=== PATIENT | male | born 1970 | race Caucasian/White ===

== ENCOUNTER 2017-06-10 13:54 | Emergency (ER) | payer OTHER ==
[~2017-06-10] VITALS: Ht 167.6 cm; Wt 72.6 kg
[~2017-06-10 13:54] MED LIST: BENZ2TAB27 PO; CLON0.1T42 PO; DEP250L GT; DOCU-67 PO; LEVE1000 PO; MULT5SOL7 PO; RISP2TAB PO; TRAZ-286 PO
[2017-06-10 13:59] VITALS: BP 129/77
--- NOTE | 2017-06-10 14:20 | NUR ---
PATIENT PRESENTS TO ED WITH CHEST PAIN AND HEADACHE TODAY. PT IS FROM [facility], CAREGIVERS PRESENT AT BEDSIDE. DENIES N/V/D; SKIN IS PINK/WARM/DRY; AAOX4 WITH EVEN AND STEADY GAIT; LUNGS CLEAR BL; HR EVEN AND REGULAR; PT DENIES ANY FEVER, CP, SOB, OR COUGH AT THIS TIME; VSS; PATIENT POSITIONED FOR COMFORT; HOB ELEVATED; BEDRAILS UP X2; BED DOWN. ER MD MADE AWARE OF PT STATUS.
--- NOTE | 2017-06-10 14:32 | NUR ---
PER PT, PT FELL AT [facility] AND HIT HEAD AND CHEST DURING THE FALL.
--- NOTE | 2017-06-10 15:00 | NUR ---
DR. WILLIS IN TO SEE PT.
[2017-06-10] MEDS ORDERED: NACL 0.9% 1,000 ML IV ONE (15:05)
[2017-06-10 15:55] LABS: BASOPHILS # (AUTO) 0.6 K/uL (0.00-0.22); EOSINOPHILS # (AUTO) 0.1 K/uL (0-0.4); MEAN CORPUSCULAR VOLUME 99 fL (80-94)
[2017-06-10 15:59] LABS: HEMATOCRIT 39.2 % (36-52); HEMOGLOBIN 13.5 g/dL (12.0-18.0); LYMPHOCYTES # (AUTO) 2.4 K/uL (2.0-11.5); MEAN CORPUSCULAR HEMOGLOBIN 34 pg (27-31); MEAN CORPUSCULAR HGB CONC 35 g/dL (33-37); MONOCYTES # (AUTO) 0.5 K/uL (0.8-1.0); NEUTROPHILS # (AUTO) 2.9 K/uL (1.8-7.7); PLATELET COUNT (AUTO) 98 K/uL (140-450); RED BLOOD CELL COUNT(AUTO) 3.98 MIL/uL (4.20-6.10); RED CELL DISTRIBUTION WIDTH 12.1 % (11.6-13.7); WHITE BLOOD COUNT (AUTO) 6.5 K/uL (4.8-10.8)
[2017-06-10 16:01] LABS: ALBUMIN 3.7 g/dL (3.4-5.0); ANION GAP 11.7 (8-16); CARBON DIOXIDE 28.1 mmol/L (21-32); CREATININE 0.9 mg/dL (0.7-1.3); POTASSIUM 3.8 mmol/L (3.5-5.1); TOTAL BILIRUBIN 0.5 mg/dL (0.0-1.0)
[2017-06-10 16:03] LABS: PROTHROMBIN TIME 13.3 secs (10.8-13.4)
--- NOTE | 2017-06-10 16:07 | NUR ---
Patient appears to be resting comfortably in bed. Vital Signs within normal limits. Respirations even and unlabored.
--- NOTE | 2017-06-10 17:12 | NUR ---
Patient discharged with v/s stable. Written and verbal after care instructions given and explained. Patient alert, oriented and verbalized understanding of instructions. Wheel Chair Assisted with by caregiver. All questions addressed prior to discharge. ID band removed. Patient advised to follow up with PMD. Rx of IBUPROFEN given. Patient educated on indication of medication including possible reaction and side effects. Opportunity to ask questions provided and answered.
[2017-06-10 17:13] VITALS: BP 98/79
== END 2017-06-10 17:12 | disposition home or self-care (01) ==
LOC: MED 13:54
DX: S20.219A Contusion of unspecified front wall of thorax, initial encounter (principal); X58.XXXA Exposure to other specified factors, initial encounter; Y93.89 Activity, other specified; Y92.89 Other specified places as the place of occurrence of the external cause; Y99.8 Other external cause status
CPT/HCPCS: 36415; 71010; 80053; 83880; 84484; 85025; 85610; 85730; 93005; 96360; 96361; 99285; J7030; Q0092

== ENCOUNTER 2020-06-20 10:39 | Emergency (ER) | payer OTHER ==
[~2020-06-20] VITALS: Ht 167.6 cm; Wt 68.0 kg
[~2020-06-20 10:39] MED LIST changes: -CLON0.1T42 PO; -DEP250L GT; +DIVA500T1 PO; -DOCU-67 PO; -LEVE1000 PO; +LEVE750T3 PO; +MULT-464 PO; -MULT5SOL7 PO; +QUET200T PO; +QUET300T1 PO; -RISP2TAB PO; +SENN-74 PO; -TRAZ-286 PO; +TRAZ-343 PO
[2020-06-20 10:50] VITALS: BP 126/58
--- NOTE | 2020-06-20 11:03 | NUR ---
49 YO MALE CO FELL OUT OF HIS WHEELCHAIR X 4 DAYS AGO---STAFF NOTED RIGHT HAND SWELLING-----NO OTHER INJURIES NOTED HX-SEVERE MENTAL DELAY, CONGENITAL HYPOTHYROIDISM
[2020-06-20] MEDS ORDERED: KETAMINE 500 MG/5 ML VIAL IVP ONE (11:55)
--- NOTE | 2020-06-20 12:50 | NUR ---
MODERATE SEDATION PERFORMED. RT, EMT AND ERMD AT BEDSIDE DURING PROCEDURE. TIME OUT DONE. POST REDUCTION XRAY COMPLETED. CAST APPLIED BY EMT. PLEASE SEE MODERATE SEDATION RECORD FOR FURTHER DETAILS.
[2020-06-20] MEDS ORDERED: KETOROLAC 15 MG/ML VIAL IVP ONE (13:20)
--- NOTE | 2020-06-20 13:29 | NUR ---
covering primary RN heidy for lunch, assumed pt care at this time.
[2020-06-20 14:11] VITALS: BP 115/65
--- NOTE | 2020-06-20 14:14 | NUR ---
Patient discharged with v/s stable. Written and verbal after care instructions given and explained. Patient alert, oriented and verbalized understanding of instructions. Wheel Chair Assisted with by caregiver. All questions addressed prior to discharge. ID band removed. Patient advised to follow up with PMD. Rx of tylenol given. Patient educated on indication of medication including possible reaction and side effects. Opportunity to ask questions provided and answered.
== END 2020-06-20 14:14 | disposition home or self-care (01) ==
LOC: MED 10:39
DX: S52.501A Unspecified fracture of the lower end of right radius, initial encounter for closed fracture (principal); S52.601A Unspecified fracture of lower end of right ulna, initial encounter for closed fracture; Z86.73 Personal history of transient ischemic attack (TIA), and cerebral infarction without residual deficits; Z79.899 Other long term (current) drug therapy; W05.0XXA Fall from non-moving wheelchair, initial encounter; Y93.89 Activity, other specified; Y92.89 Other specified places as the place of occurrence of the external cause; Y99.8 Other external cause status
CPT/HCPCS: 25605; 73090; 73100; 73130; 96374; 99285; J1885; Q0092

== ENCOUNTER 2022-10-23 09:15 | Inpatient (IN) | payer OTHER ==
[~2022-10-23] VITALS: Ht 167.6 cm; Wt 68.9 kg
[2022-10-23] VITALS (7 sets, daily range): BP systolic 78–154; BP diastolic 49–76
--- NOTE | 2022-10-23 09:27 | NUR ---
PATIENT WHEELCHAIR ASSISTED TO BED 2
--- NOTE | 2022-10-23 09:32 | NUR ---
PT RECEIVED, CARE ASSUMED. PT AWAKE BUT CONFUSSED. PT UNABLE TO ANSWER QUESTIONS. CONNECTED TO TELE MONITOR: ST 121. NOTED LOW BP 81/45. PLACED PT ON [place] POSITION, INSERTED 22G IV TO LEFT FA. STARTED 1 LITER NS0.9. AWAITING TO BE SEEN BY
[2022-10-23] MEDS ORDERED: NACL 0.9% 1,000 ML IV SCH (09:35)
[2022-10-23 10:19] LABS: BASOPHILS % (AUTO) 0.1 % (0.0-2.0); HEMATOCRIT 43.8 % (36-52); HEMOGLOBIN 14.5 g/dL (12.0-18.0); LYMPHOCYTES # (AUTO) 0.3 K/uL (2.0-11.5); LYMPHOCYTES % (AUTO) 2.5 % (20.5-51.1); MEAN CORPUSCULAR HEMOGLOBIN 34 pg (27-31); MEAN CORPUSCULAR HGB CONC 33 g/dL (33-37); MEAN CORPUSCULAR VOLUME 103.4 fL (80-94); MONOCYTES # (AUTO) 0.5 K/uL (0.8-1.0); MONOCYTES % (AUTO) 4.3 % (1.7-9.3); NEUTROPHILS # (AUTO) 11.5 K/uL (1.8-7.7); NEUTROPHILS % (AUTO) 93.1 % (42.2-75.2); PLATELET COUNT (AUTO) 142 K/uL (140-450); RED BLOOD CELL COUNT(AUTO) 4.24 MIL/uL (4.20-6.10); RED CELL DISTRIBUTION WIDTH 14.5 % (11.6-13.7); WHITE BLOOD COUNT (AUTO) 12.3 K/uL (4.8-10.8)
[2022-10-23 11:11] LABS: ALBUMIN 3.2 g/dL (3.4-5.0); ANION GAP 21.5 (8-16); CARBON DIOXIDE 21.9 mmol/L (21-32); CREATININE 1.3 mg/dL (0.6-1.3); POTASSIUM 3.4 mmol/L (3.5-5.1); TOTAL BILIRUBIN 0.8 mg/dL (0.0-1.0)
[2022-10-23 11:22] LABS: PROTHROMBIN TIME 10.5 secs (10.8-13.4)
[2022-10-23] MEDS ORDERED: NACL 0.9% 1,000 ML IV ONE (11:25)
[2022-10-23] MEDS ORDERED: cefTRIAXone 1,000 MG VIAL ONE (12:06)
[2022-10-23] MEDS ORDERED: MAG SULF 2000 MG/WATER PREMIX 50 ML IV PRN (14:15)
[2022-10-23] MEDS ORDERED: POTASSIUM CHLORIDE 10 MEQ TABER PO PRN (14:15)
[2022-10-23] MEDS ORDERED: VANCOMYCIN PER PHARMACY MC PRN (14:15)
[2022-10-23] MEDS ORDERED: MAGNESIUM OXIDE 400 MG TAB PO PRN (14:15)
[2022-10-23] MEDS: NACL 0.9% 1,000 ML IV SCH (14:44)
[2022-10-23 14:46] LABS: BARBITURATE, URINE NEGATIVE ng/ml (NEG <=200); BENZODIAZEPINE, URINE NEGATIVE ng/mL (NEG <=200); CANNABINOID, URINE NEGATIVE ng/mL (NEG <=50); COCAINE, URINE NEGATIVE ng/mL (NEG <=300); OPIATE, URINE NEGATIVE ng/mL (NEG <=2000); PHENCYCLIDINE SCREEN,URINE NEGATIVE ng/mL (NEG <=25)
[2022-10-23 14:50] LABS: APPEARANCE,URINE CLOUDY (CLEAR); BILIRUBIN,URINE 3+ (NEGATIVE); BLOOD, URINE NEGATIVE (NEGATIVE); COLOR,URINE RED (YELLOW); LEUKOCYTE ESTERASE ,URINE TRACE (NEGATIVE); NITRITE, URINE POSITIVE (NEGATIVE); PH,URINE 6.5 (5.0-9.0); UGLUCOSE TRACE (NEGATIVE)
[2022-10-23] MEDS ORDERED: VANCOMYCIN HCL 1.25 GM in DEXTROSE 5% 250 ML IV SCH (16:00)
[2022-10-23 16:18] LABS: RBC,URINE 0-5 /HPF (0-5); WBC,URINE 0-5 /HPF (0-5)
[2022-10-23] MEDS ORDERED: MAGNESIUM HYDROXIDE 2400 MG/30 ML UDC PO SCH (17:00)
[2022-10-23] MEDS ORDERED: VANCOMYCIN 1,000 MG VIAL ONE (17:13)
--- NOTE | 2022-10-23 17:30 | NUR ---
Patient will be admitted to care of ICU 2. Admited to ICU. Will go to room. Belongings list completed. Report to .
--- NOTE | 2022-10-23 17:45 | NUR ---
PATIENT ARRIVED FROM ER, TRANSFERRED SAFELY TO ICU BED. AAOX2, DELAYED SPEECH, INTELLECTUAL DISABILITY HISTORY, COOPERATIVE, FOLLOWS COMMANDS. IV SITE INTACT, PATENT, INFUSING IVF PER MD ORDERS. ROMERO CATH IN PLACE. ON ROOM AIR. COMPLAINS OF ABDOMINAL PAIN, MILD 2/10, WITHIN TOLERABLE AT THIS TIME. ORIENTED PATIENT TO ROOM AND CALL LIGHT. WILL CONTINUE TO MONITOR.
[2022-10-23] MEDS: MIDODRINE 5 MG TAB PO SCH (18:19)
[2022-10-23] MEDS: PIPERACILLIN/TAZOBACTAM 3.375 GM in DEXTROSE 5% 50 ML IV SCH (18:19)
--- NOTE | 2022-10-23 18:20 | NUR ---
SCHEDULED MEDICATIONS DUE GIVEN. WILL CONTINUE TO MONITOR.
--- NOTE | 2022-10-23 19:24 | NUR ---
Note steven in EDM - 10/23/22 at 1925 by [id number] Patient will be admitted to care of ICU 2. Admited to ICU. Will go to room. Belongings list completed. Report to .
--- NOTE | 2022-10-23 19:26 | NUR ---
GAVE REPORT TO LIGHT ADJUSTER NURSE FOR CONTINUITY OF CARE.
--- NOTE | 2022-10-23 19:30 | NUR ---
RECEIVED PATIENT ON BED, AWAKE, ALERT, ABLE TO FOLLOW COMMANDS THOUGH PATIENT HAS INTELLECTUAL DISABILITY. BREATHING EVEN AND UNLABORED; CARDIACSCOPE SHOWS ON SINUS TACHYHR 125/MIN NO ARRHYTHMIAS SEEN. IVF IN PROGRESS NORMAL SALINE AT 100 ML/HR VIA G 22 IV CANNULA ON LEFT ARM; PATENT AND INTACT. ABDOMEN IS SOFT, NON TENDER, ACTIVE BOWEL SOUNDS. WITH ROMERO CATH IN SITU TO GRAVITY DRAINAGE DRAINING TO TEA COLORED URINE OUTPUT .
[2022-10-23] MEDS: FAMOTIDINE 20 MG/2 ML VIAL IV SCH (20:40)
[2022-10-23] MEDS: traZODone 50 MG TAB PO SCH (20:41)
[2022-10-23] MEDS: levETIRAcetam 500 MG TAB PO SCH (20:43)
[2022-10-23] MEDS: DIVALPROEX 500 MG TABER PO SCH (20:44)
[2022-10-23] MEDS ORDERED: QUEtiapine FUMARATE 100 MG TAB PO SCH (21:00)
[2022-10-23] MEDS: BENZTROPINE 1 MG TAB PO SCH (21:08)
[2022-10-23] MEDS: DOCUSATE SODIUM 100 MG GELCAP PO SCH (21:09)
--- NOTE | 2022-10-23 21:30 | NUR ---
DUE ORAL MEDICATIONS GIVEN ORALLY WITH APPLE SAUCE.
--- NOTE | 2022-10-23 22:45 | NUR ---
PATIENT IS IN RESPIRATORY DISTRESS AND DESATURATING S02 DOWN TO 83%; PUT PATIENT OF HIGH FLOW 02 BY THE RT; S02 SOMEWHAT IMPROVE BUT PATIENT STILL LOOK LIKE IS DISTRESS AND COMPLAINED OF ABDOMINAL PAIN SO MEDICATED WITH HYDROCODONE TAB PO GIVEN.
[2022-10-23] MEDS: HYDROcodone/APAP 5/325 MG 1 TAB TAB PO PRN (22:51)
--- NOTE | 2022-10-23 23:30 | NUR ---
PATIENT STILL LOOK IN RESPIRATORY DISTRESS; REFER TO DR. ALANIZ WITH NEW ORDERS CARRIED OUT
[2022-10-23 23:56] LABS: ANION GAP 19.3 (8-16); CARBON DIOXIDE 15.7 mmol/L (21-32); CREATININE 1.2 mg/dL (0.6-1.3)
[2022-10-24] VITALS (26 sets, daily range): BP systolic 85–134; BP diastolic 44–80
[2022-10-24] MEDS ORDERED: ROCURONIUM 50 MG/5 ML VIAL IV ONE
[2022-10-24] MEDS ORDERED: ETOMIDATE 20 MG/10 ML VIAL IVP ONE
[2022-10-24] MEDS ORDERED: SODIUM BICARBONATE 8.4% PFS 50 MEQ/50 ML SYR IVP ONE ×2 (00:25→00:35)
[2022-10-24] MEDS: NACL 0.9% 1,000 ML IV SCH ×2 (00:30→20:58)
--- NOTE | 2022-10-24 00:40 | NUR ---
STAT CHEST X-RAY, BMP, AND ABG REQUESTED ORDERED BY DR. ALANIZ AND ALL RESULTS REPORTED TO HIM WITH ORDER TO GIVE SODIUM BICARB 3 AMPULES NOW; GIVEN IVP ORDERED.
[2022-10-24] MEDS ORDERED: PIPERACILLIN/TAZOBACTAM 3.375 GM VIAL IV ONE ×2 (00:42→05:19)
[2022-10-24] MEDS: MIDODRINE 5 MG TAB PO SCH ×4 (00:43→18:00)
[2022-10-24] MEDS: PIPERACILLIN/TAZOBACTAM 3.375 GM in DEXTROSE 5% 50 ML IV SCH ×4 (00:51→19:19)
[2022-10-24] MEDS: MORPHINE SULFATE 2 MG/ML SYR IVP PRN ×2 (00:55→07:46)
--- NOTE | 2022-10-24 04:04 | NUR ---
PLACED PT ON BiPAP DUE TO INCREASE WOB. WILL CONTINUE TO MONITOR PT.
--- NOTE | 2022-10-24 04:18 | NUR ---
REFERRED TO DR. ALANIZ, PATIENT'S BP IS GETTING LOW ; NOW ITS 87/54 TACHYAPNEIC RR 35-40/MIN TACHYCARDEIC HR 127-134; GOT NEW ORDERS AT 0550HR; ALL ORDERS CARRIED OUT.
[2022-10-24] MEDS ORDERED: FUROSEMIDE 20 MG/2 ML VIAL IVP ONE ×2 (05:30→05:31)
--- NOTE | 2022-10-24 05:30 | NUR ---
ABG RESULTS ON BiPAP WERE REPORTED TO DR. ALANIZ. READ BACK CONFIRMED. NO CHANGES OR ORDER GIVEN AT THIS TIME. WILL XONTINUE TO MONITOR PT.
[2022-10-24] MEDS ORDERED: HYDROCORTISONE NA SUCC 100 MG/2 ML VIAL IV ONE (05:55)
[2022-10-24] MEDS ORDERED: PHENYLEPHRINE 20 MG in NACL 0.9% 250 ML IV PRN (05:55)
[2022-10-24 05:59] LABS: BASOPHILS % (AUTO) 0.1 % (0.0-2.0); HEMATOCRIT 38.5 % (36-52); HEMOGLOBIN 12.8 g/dL (12.0-18.0); LYMPHOCYTES # (AUTO) 1.1 K/uL (2.0-11.5); LYMPHOCYTES % (AUTO) 9.7 % (20.5-51.1); MEAN CORPUSCULAR HEMOGLOBIN 34 pg (27-31); MEAN CORPUSCULAR HGB CONC 33 g/dL (33-37); MEAN CORPUSCULAR VOLUME 103.2 fL (80-94); MONOCYTES # (AUTO) 1.3 K/uL (0.8-1.0); NEUTROPHILS # (AUTO) 8.7 K/uL (1.8-7.7); NEUTROPHILS % (AUTO) 78.2 % (42.2-75.2); PLATELET COUNT (AUTO) 140 K/uL (140-450); RED BLOOD CELL COUNT(AUTO) 3.73 MIL/uL (4.20-6.10); RED CELL DISTRIBUTION WIDTH 14.4 % (11.6-13.7); WHITE BLOOD COUNT (AUTO) 11.2 K/uL (4.8-10.8)
[2022-10-24] MEDS ORDERED: HYDROCORTISONE NA SUCC 100 MG/2 ML VIAL ONE (06:05)
[2022-10-24] MEDS ORDERED: PHENYLEPHRINE 10 MG/ML VIAL ONE ×2 (06:06→23:59)
[2022-10-24 06:31] LABS: ALBUMIN 2.8 g/dL (3.4-5.0); ANION GAP 21.6 (8-16); CARBON DIOXIDE 21.2 mmol/L (21-32); CREATININE 1.5 mg/dL (0.6-1.3); MAGNESIUM 2.9 mg/dL (1.8-2.4); POTASSIUM 3.8 mmol/L (3.5-5.1); TOTAL BILIRUBIN 0.7 mg/dL (0.0-1.0)
[2022-10-24] MEDS: NACL 0.9% IV PRN (06:40)
[2022-10-24] MEDS: PHENYLEPHRINE IV PRN (06:40)
--- NOTE | 2022-10-24 06:40 | NUR ---
NEOSYNEPHRINE DRIP STARTED AT 50 MCG/MIN VIA PERIPHERAL LINE TO NEWLY INSERTED G20 IV CANNULA ON RIGHT ARM. V/S MONITORED CLOSELY.
--- NOTE | 2022-10-24 07:30 | NUR ---
Received report on pt. Pt noted with tachypnea on bipap FiO2 100%. IV sites with IVF infusing, no infiltration noted. Pt also on neosynephrine drip. Donovan in place with minimal output. Pt able to answer yes/no questions, but unable to tell if is understood.
--- NOTE | 2022-10-24 08:01 | NUR ---
Call made to contact on facesheet, Jason Pabon. Jason states he is the caregiver for patient but is not the major decision maker. Jason provided number for patient's sister Elinor Malagon [phone] and [facility] Picking Table Worker [phone]. Jason also states he will fax [employer].
--- NOTE | 2022-10-24 08:17 | NUR ---
Call made to Elinor Malagon with [employer] interpreter ID [id number]. Elinor made aware of pt's condition, obtained consent for PICC line and informed about possibility of putting patient on ventilator. PICC line consent signed by Dr. Julian. Addendum: 10/24/22 at 1028 by Agency Caitlin HERNANDEZ RN Witnessed by Nadia HERNANDEZ.
[2022-10-24] MEDS: SENNA 8.6 MG TAB PO SCH (09:00)
[2022-10-24] MEDS: levETIRAcetam 500 MG TAB PO SCH ×2 (09:00→21:00)
[2022-10-24] MEDS: DIVALPROEX 500 MG TABER PO SCH ×2 (09:00→21:00)
[2022-10-24] MEDS: DOCUSATE SODIUM 100 MG GELCAP PO SCH ×2 (09:00→21:00)
[2022-10-24] MEDS ORDERED: QUEtiapine FUMARATE 100 MG TAB PO SCH (09:00)
[2022-10-24] MEDS: BENZTROPINE 1 MG TAB PO SCH ×2 (09:00→21:00)
[2022-10-24] MEDS: POLYETHYLENE GLYCOL 17 GM/PKT PO SCH (09:00)
--- NOTE | 2022-10-24 09:00 | NUR ---
Pt unable to tolerate being off BiPAP to eat or take medication. Dr. Julian aware.
[2022-10-24] MEDS: ENOXAPARIN 40 MG/0.4 ML SYR SUBQ SCH (09:38)
[2022-10-24] MEDS: FAMOTIDINE 20 MG/2 ML VIAL IV SCH (10:00)
--- NOTE | 2022-10-24 10:42 | NUR ---
PICC line nurse at bedside for procedure. Time out done.
--- NOTE | 2022-10-24 10:46 | NUR ---
PATIENT HAS BEEN SCREENED AND CATEGORIZED HIGH NUTRITION RISK. PATIENT WILL BE SEEN WITHIN 1-2 DAYS OF ADMISSION. REVIEWED BY MEGHAN CHAVIS RD
--- NOTE | 2022-10-24 11:12 | NUR ---
ON OR ABOUT THIS TIME Zee WANG RCP AND STEVEN BERNAL CALLED TO BEDSIDE FOR INTUBATION
[2022-10-24] MEDS ORDERED: MIDAZOLAM MDV 50 MG in NACL 0.9% 40 ML IV PRN (11:15)
--- NOTE | 2022-10-24 11:15 | NUR ---
Dr. Whitney rounding on pt, states to intubate pt. New orders made.
--- NOTE | 2022-10-24 11:20 | NUR ---
INTUBATION PROCEDURE Zee WANG RCP AND Sebastien CONWAY RCP ATTENDING; USING A GLIDESCOPE VOCAL CORDS VISUALIZED PATIENT SUCCESSFULLY INTUBATED BY DR. XAVIER CHAVIS WITH AN ENDOTRACHEAL TUBE (ETT) #7.5 SECURED AT 25cm TEETH/GUM LINE WITH AN ANCHOR FAST CUFF PRESSURE MOV ETT PLACEMENT CONFIRMED VIA ETCO2-YELLOW GOOD CHEST RISE AUSCULTATION BILATERAL LUNG APEX TO BASES GOOD AERATION CXR TO FOLLOW
--- NOTE | 2022-10-24 11:25 | NUR ---
Intubation done by Dr. Whitney Addendum: 10/24/22 at 1203 by Agency Caitlin HERNANDEZ RN RT present at bedside. Pt received Etomidate 20 mg and rocuronium 30 mg. Attempted NGT insertion.
--- NOTE | 2022-10-24 11:32 | NUR ---
PLACED ON A PB 840 VENTILATOR WITH COMPRESSOR PLUGGED INTO RED OUTLET TOLERATING WELL WITHOUT ADVERSE REACTIONS NOTED
--- NOTE | 2022-10-24 12:03 | NUR ---
NGT/OGT insertion unsuccessful x 3, pt resting post attempt
--- NOTE | 2022-10-24 14:00 | NUR ---
Called Elinor Manas via [employer] Lead #[phone] and obtained consent for CT angiogram ordered by , but Elinor states she does not know complete history of pt and states to call care home for more information regarding the questionnaire. Attempted 3 calls to pt's caregiver Jason Pabon at [facility], no answer and no voicemail available to leave message. Will attempt again later.
[2022-10-24] MEDS: fentaNYL citrate 1 MG in NACL 0.9% 80 ML IV PRN (15:22)
[2022-10-24] MEDS ORDERED: VANCOMYCIN HCL 1.25 GM in DEXTROSE 5% 250 ML IV SCH (16:00)
--- NOTE | 2022-10-24 16:45 | NUR ---
Call placed again to [facility] to obtain information for contrast questionnaire. Consent completed and in chart.
--- NOTE | 2022-10-24 16:54 | NUR ---
10/24/22 RD INITIAL ASSESSMENT COMPLETED PLEASE REFER TO NUTRITION ASSESSMENT UNDER CARE ACTIVITY FOR ESTIMATED NUTRITIONAL NEEDS. 1. RECOMMEND CONSIDER NUTRITION SUPPORT IF/WHEN MEDICALLY APPROPRIATE TOLERATED 2. RECOMMEND VITAL AF 1.2 AT GOAL RATE 60 ML/HR, FWF 150 ML Q6H TOLERATED - PROVIDES 1440 ML TOTAL VOLUME, 1728 KCAL, 108 GM PROTEIN AND 1760 ML FREE WATER DAILY MEETING 100% ESTIMATED KCAL AND PROTEIN NEEDS; ADEQUATE - START TF AT 1O ML/HR INCREASE BY 1O ML Q4H UNTIL GOAL IS REACHED 3. MONITOR NPO STATUS, GI SYMPTOMS, NUTRITION RELATED LAB VALUES 4. CONSULT RD PRN 5. RD TO FOLLOW-UP 2-3 DAYS, HIGH RISK REVIEWED BY MEGHAN CHAVIS RD
--- NOTE | 2022-10-24 16:54 | NUR ---
DC PLANNING PER NOTES, PT IS ALERT AND ORIENTED X2 WITH INTELLECTUAL DISABILITY SW OUTREACHED TO PTS EMERGENCY CONTACT, [facility], WHO REPORTS PT IS RESIDENT OF [facility] FOR 10+YRS. [facility] REPORTS PT HAS ACTIVE FAMILY INVOLVEMENT, SISTER, FABIENNE PERALES, WHO IS PTS [facility]. PT IS ALSO REPORTED TO BE [facility] CONNECTED, [facility] SW; [place], . PT IS REPORTED TO BE WHEELCHAIR BOUND AND REQUIRES ASSISTANCE WITH ADL'S. PT IS REPORTED TO BE MINIMALLY VERBAL AND CAN ANSWER SIMPLE QUESTIONS. PT IS REPORTED TO BE INDONESIAN SPEAKING ONLY. PT IS REPORTED TO SHOW VERY MINIMAL VERBAL AND PHYSICAL AGGRESSION HOWEVER. PT IS REPORTED TO BE COMPLIANT WITH CARE AND TAKES MEDICATION THAT IS ADMINISTERED BY HOME. [facility] REPORTS DC PLAN IS FOR PT TO RETURN TO RESIDENTIAL [facility] WHEN MEDICALLY STABLE. [facility] REPORTS [facility] PROVIDES TRANSPORTATION . Addendum: 10/24/22 at 1656 by Bhavna WILHELM Amended: Links added.
--- NOTE | 2022-10-24 19:20 | NUR ---
Endorsed plan of care to Galileo HERNANDEZ. Made aware of CT angio with contrast, consent signed and placed in chart
--- NOTE | 2022-10-24 19:32 | NUR ---
RECEIVED REPORT FROM AM SHIFT. PATIENT WAS SEEN AND ASSESSED. PATIENT IS INTUBATED WITH ETT SIZE 7.5 AND SECURED WITH A BITING BLOCK ANCHOR-FAST 25cm @ TEETH. PATIENT IS ON VENTILATOR SUPPORT. VENTILATOR PLUGGED IN RED OUTLET. VENTILATOR ALARMS SET APPROPRIATELY AND AUDIBLE TO ENVIRONMENT. AMBU BAG AT BEDSIDE. HEAD OF BED GREATER THAN 30 DEGREES. NOTICED ADEQUATE BILATERAL CHEST RISE AND FALL. PATIENT IS IN NO RESPIRATORY DISTRESS AT THIS TIME.VENT SETTINGS: AC/VC RR 18, Vt 450, PEEP 5, FiO2 100% WITH SPO2 OF 97%. BILATERAL BREATH SOUNDS ON AUSCULTATION; UPPER LOBES: CLEAR, LOWER LOBES: COARSE. SUCTION SMALL AMOUNT OF WHITE/YELLOW THICK SECRETIONS FROM ETT.
--- NOTE | 2022-10-24 20:23 | NUR ---
1999- PT FOUND INTUBATED AND RESPONSIVE TO VOICE WITH EYE OPEN BUT DOESNT FOLLOW COMMANDS. FENATNYL, VERSED, NORMAL SALINE AND NEOSYNEPHRINE RUNNING THROUGH RIGHT UPPER ARM PICC. ALL IV SITES FLUSH WITHOUT COMPLICATION. NGT INSERTED ON RIGHT NARE AND TO BE CONFIRMED WITH CT ABDOMEN WHICH WAS SCHEDUYLED TO BE AT 2130. NO COMPLICATION NOTED IN THE INSERTION OF THE NGT
[2022-10-24] MEDS: traZODone 50 MG TAB PO SCH (21:00)
--- NOTE | 2022-10-24 22:23 | NUR ---
AT APPROXIMATELY 2140 PT WAS DISCONNECTED AND OXYGENATION AND VENTILATION WAS PROVIDED VIA BVM TO CT SCAN. PT TOLERATED WELL DURING PROCEDURE AND TRANSPORT. SPO2 98% TO 100%. PT WAS BROUGHT BACK AT 2220 AND CONNECTED BACK TO VENT. WILL CONTINUE TO MONITOR PT.
--- NOTE | 2022-10-24 22:24 | NUR ---
PT LEFT FOR CT ANGIO AT 2139 AND RETURNED AT 2219. NO COMPLICATIONS NOTED
--- NOTE | 2022-10-24 23:59 | NUR ---
SPO2 98%. TITRATED FiO2 FROM 100% TO 95%. SPO2 96%. PT TOLERATING WELL AT THIS TIME. WILL CONTINUE TO MONITOR PT
[2022-10-25] VITALS (31 sets, daily range): BP systolic 88–130; BP diastolic 43–89
[2022-10-25] MEDS: PIPERACILLIN/TAZOBACTAM 3.375 GM in DEXTROSE 5% 50 ML IV SCH ×5 (00:03→23:42)
--- NOTE | 2022-10-25 03:00 | NUR ---
SPO2 98%. TITRATED FiO2 FROM 95% TO 85%. SPO2 97%. PT TOLERATING WELL AT THIS TIME. RN NOTIFIED. WILL CONTINUE TO MONITOR PT
[2022-10-25 05:51] LABS: BASOPHILS % (AUTO) 0.2 % (0.0-2.0); EOSINOPHILS % (AUTO) 0.2 % (0.0-4.0); HEMATOCRIT 33.9 % (36-52); HEMOGLOBIN 11.5 g/dL (12.0-18.0); LYMPHOCYTES % (AUTO) 8.3 % (20.5-51.1); MEAN CORPUSCULAR HEMOGLOBIN 35 pg (27-31); MEAN CORPUSCULAR HGB CONC 34 g/dL (33-37); MEAN CORPUSCULAR VOLUME 101.6 fL (80-94); MONOCYTES % (AUTO) 8.5 % (1.7-9.3); NEUTROPHILS # (AUTO) 9.7 K/uL (1.8-7.7); NEUTROPHILS % (AUTO) 82.8 % (42.2-75.2); PLATELET COUNT (AUTO) 76 K/uL (140-450); RED BLOOD CELL COUNT(AUTO) 3.33 MIL/uL (4.20-6.10); RED CELL DISTRIBUTION WIDTH 14.8 % (11.6-13.7); WHITE BLOOD COUNT (AUTO) 11.8 K/uL (4.8-10.8)
[2022-10-25] MEDS: MIDODRINE 5 MG TAB PO SCH ×5 (06:00→23:42)
[2022-10-25 06:52] LABS: ALBUMIN 2.3 g/dL (3.4-5.0); ANION GAP 15.7 (8-16); CARBON DIOXIDE 23.8 mmol/L (21-32); CREATININE 1.3 mg/dL (0.6-1.3); MAGNESIUM 3.1 mg/dL (1.8-2.4); POTASSIUM 4.5 mmol/L (3.5-5.1); TOTAL BILIRUBIN 0.9 mg/dL (0.0-1.0)
--- NOTE | 2022-10-25 06:56 | NUR ---
PT REMAINS STABLE, INTUBATED AND SEDATED. PRESSORS ARE STILL ON AT NEOSYNEPHRINE AT 50 MCG/MIN, HAD TO MIX NEOSYNEPHRINE LAST NIGHT DUE TO UNSTOCKED MEDS IN CASSETTE. MIXED 80MG NEOSYNEPHRINE IN 1000 ML OF NS DUE TO INSUFFICIENT AMOUNTS OF 500 ML BAGS OF NS IN ENTIRE HOSPITAL. CHARGE NURSE MAKAYLA MADE AWARE. UNABLE TO FULLY CONFIRM PLACEMENT OF NGT WITH CHEST X RAY AND CT IMPRESSIONS DUE TO INABILITY TO ADVANCE DESPITE RECOMMENDATIONS AND THEREFORE UNABLE TO GIVE ANY OF THE PO MEDS. WILL ENDORSE TO DAY NURSE TO FOLLOW UP WITH MD FOR FURTHER RECOMMENDATIONS ON GASTRIC TUBE PLACEMENT
--- NOTE | 2022-10-25 07:15 | NUR ---
RECEIVED PT ON ACVC 400,18,+5,85%. VENT WHEELS ARE LOCKED, PLUGGED INTO RED OUTLET, AMBUBAG AT BEDSIDE, ALARMS ARE SET AND AUDIBLE. SATURATION WAS 97%. BREATH SOUNDS WERE CLEAR, BUT DIMINISHED IN THE LOWER LOBES. WILL CONTINUE TO MONITOR.
--- NOTE | 2022-10-25 08:00 | NUR ---
RECEIVED PTSEDATED, ON VERSED AT 5 MCG/HR AND FENTANYL AT 1.5 MCG/KG/HR; ORALLY INTUBATED, AFEBRILE. ASSESSMENT DONE. IV FLUIDS INFUSING WELL VIA LEFT PICC IN LEFT UPPER ARM, GOOD BACKFLOW, GEN NONPITTING EDEMA NOTED. REPOSITIONED TO SIDE, SUPPORTED WITH PILLOWS, CONT TO MONITOR, ST /SR.
[2022-10-25] MEDS: levETIRAcetam 500 MG TAB PO SCH ×2 (09:00→20:57)
[2022-10-25] MEDS: POLYETHYLENE GLYCOL 17 GM/PKT PO SCH (09:00)
[2022-10-25] MEDS: BENZTROPINE 1 MG TAB PO SCH ×2 (09:00→20:59)
[2022-10-25] MEDS: VANCOMYCIN HCL 1.25 GM in DEXTROSE 5% 250 ML IV SCH (09:00)
[2022-10-25] MEDS: DOCUSATE SODIUM 100 MG GELCAP PO SCH (09:00)
[2022-10-25] MEDS: SENNA 8.6 MG TAB PO SCH (09:00)
[2022-10-25] MEDS: ENOXAPARIN 40 MG/0.4 ML SYR SUBQ SCH (09:00)
[2022-10-25] MEDS: DIVALPROEX 500 MG TABER PO SCH (09:00)
--- NOTE | 2022-10-25 09:00 | NUR ---
LOVENOX NOT GIVEN, PLATELET 76,000; NO S/S ACTIVE BLEEDING NOTED AT THIS TIME.
--- NOTE | 2022-10-25 09:35 | NUR ---
BP 83/52, HR 140'S NEOSYNEPHRINE DRIP TITRATED UP, CONT TO MONITOR.
[2022-10-25] MEDS: fentaNYL citrate 1 MG in NACL 0.9% 80 ML IV PRN (10:38)
--- NOTE | 2022-10-25 10:45 | NUR ---
DR. Claudine CHAVIS HERE UPDATED ON PT CONDITION, INFORMED NGT NEEDS PLACEMENT VERIFICATION, PT AT THIS TIME IS TOTALLY NPO. VERIFIED PLACEMENT, OK TO USE PER MD, NEW ORDER NOTED AND CARRIED OUT.
[2022-10-25] MEDS ORDERED: AMIODARONE 150 MG in DEXTROSE 5% 100 ML IV SCH (11:30)
--- NOTE | 2022-10-25 11:30 | NUR ---
FIO2 TITRATED DOWN BY RT TO 55%. CONT TO MONITOR.
[2022-10-25] MEDS: AMIODARONE 450 MG in DEXTROSE 5% 250 ML IV SCH ×2 (12:01→22:09)
--- NOTE | 2022-10-25 12:03 | NUR ---
PT. WITH LOW CASIE SCALE AT HIGH RISK, CONTINUE TO FOLLOW PRESSURE INJURY PREVENTION INTERVENTIONS. -POSITIONING: TURN AND REPOSITION PATIENT Q 2H OR SOONER USE PILLOWS TO KEEP BONY PROMINENCES FROM DIRECT CONTACT WITH SURFACES USE REPOSITIONING WEDGES TO PROVIDE 30-DEGREE ANGLE FOR SIDE LYING POSITIONS OFFLOADING OR FOAM DRESSING TO ALL TUBING TO PREVENT MEDICAL DEVICES RELATED PRESSURE INJURY -RE-EVALUATING AND MANAGING INCONTINENCE MONITOR SKIN CONDITION DURING POSITION CHANGE DO NOT MASSAGE REDNESS, BONY PROMINENCES FREQUENT MARGARET-CARE AND PROVIDE BARRIER CREAMS PRN IF SOILING MOISTURE CONTROL BY OFFER BED GARCIA/URINAL /ABSORBENT PAD TO WICK AND HOLD MOISTURE KEEP SKIN DRY AND PROTECT FROM FRICTION -MANAGE FRICTION/SHEAR/MOBILITY KEEP HOB AT THE LOWEST LEVEL OF ELEVATION NO MORE THAN 30 DEGREE UNLESS OTHERWISE CONTRAINDICATED USE LIFT SHEET OR TRANSFER DEVICE TO MOVE PATIENT AND PREVENT LATERAL SHEER. PROTECT HEELS, ELBOWS BONY PROMINENCES WITH SKIN BERRIES OR FOAM DRESSING IF EXPOSED TO FRICTION OFFLOAD BILATERAL HEELS BY PLACING PILLOWS UNDER CALVES AT ALL TIMES, UNLESS OTHERWISE CONTRAINDICATED -PRESSURE REDISTRIBUTION SURFACE THERAPY KIM ISOFLEX MATTRESS -NUTRITION: PLEASE FOLLOW RD RECOMMENDATIONS AND OFFER NUTRITION SUPPLEMENTS IF ORDERED. PLEASE CONTACT WOUND CARE NURSE FOR ANY QUESTION AND CHANGE OF WOUND CONDITION.
--- NOTE | 2022-10-25 12:15 | NUR ---
AMIODARONE DRIP GOING PER PROTOCOL. CONT TO MONITOR.
--- NOTE | 2022-10-25 13:00 | NUR ---
VERSED AND FENTANYL DRIPS STOPPED AT THIS TIME FOR BP 73/52, HR 93. CONT TO MONITOR.
[2022-10-25] MEDS: MAGNESIUM HYDROXIDE 2400 MG/30 ML UDC NG PRN (13:41)
--- NOTE | 2022-10-25 14:00 | NUR ---
ABG DONE, FIO2 TITRATED DOWN TO 40% BY RT. BP AT THIS TIME 94/54, HR 99, MYLES DRIP REMAINS AT MAX DOSE. CONT TO MONITOR.
[2022-10-25] MEDS: NACL 0.9% 1,000 ML IV SCH (15:54)
--- NOTE | 2022-10-25 16:00 | NUR ---
O2 SAT 97-98%, FIO2 TITRATED DOWN BY RT TO 35%. CONT TO MONITOR.
--- NOTE | 2022-10-25 19:15 | NUR ---
PT APPEARS TO BE RESTING COMFORTABLY, VERSED AND FENTANYL DRIPS REMAINS OFF. MYLES AND AMIO DRIPS INFUSING WELL. REPORT GIVEN TO INCOMING RN MUSTAPHA. GEN CONDITION CRITICAL.
--- NOTE | 2022-10-25 19:27 | NUR ---
RECEIVED PT. FROM DAY SHIFT MARY WELLS. PT. ON ETT PRVC RATE 18, TV 400, FIO2 35%, PEEP 5 AND O2 SAT 95%. PT. WITH LEFT UPPER ARM PICC LINE, INFUSING NEOSYNEPHRINE 150 MCG/MIN, NS 50 ML/HR AND AMIODARONE DRIP 0.5 MG/MIN. SINUS TACHYCARDIA 104-107 ON THE MONITOR PT. WITH RIGHT NGT CAPPED AND FLUSHED. PER DAY SHIFT, DR. PARK VERIFIED PLACEMENT OF NGT TO CT AND CONFIRMED IN PLACED AND ORDERED TO NO FEEDING UNTIL WITH BM. NO BM REPORTED TODAY. PT. SKIN INTACT. ROMERO CATHETER TO GRAVITY, DRAINING WELL,DARK LAVERNE URINE. PT. REPOSITIONED. BEDLOCK AND PROVIDED SAFE, QUIET ENVIRONMENT. WILL CONT. TO MONITOR.
--- NOTE | 2022-10-25 20:00 | NUR ---
PT. AXILLARY TEMP. 92.2 AND PT. SKIN DRY AND WARM. PLACED A VIGNESH HUGGER AND WILL CONT. TO MONITOR.
[2022-10-25] MEDS: VALPROIC ACID 250 MG/5 ML UDC NG SCH (20:56)
--- NOTE | 2022-10-25 21:00 | NUR ---
PT. CONT. ON VIGNESH MYERS AND MILAD AT THIS TIME 94.4. WILL CONT. TO MONITOR.
[2022-10-25] MEDS ORDERED: AMIODARONE 450 MG/9 ML VIAL IV ONE ×2 (21:49→21:51)
[2022-10-26] VITALS (31 sets, daily range): BP systolic 117–154; BP diastolic 65–95
[2022-10-26] MEDS: NACL 0.9% IV PRN ×2 (01:50→06:48)
[2022-10-26] MEDS: PHENYLEPHRINE IV PRN ×2 (01:50→06:48)
[2022-10-26] MEDS: VANCOMYCIN HCL 1.25 GM in DEXTROSE 5% 250 ML IV SCH ×2 (02:33→20:35)
[2022-10-26 06:06] LABS: HEMATOCRIT 33.5 % (36-52); HEMOGLOBIN 11.3 g/dL (12.0-18.0); MEAN CORPUSCULAR HEMOGLOBIN 34 pg (27-31); MEAN CORPUSCULAR HGB CONC 34 g/dL (33-37); MEAN CORPUSCULAR VOLUME 101.9 fL (80-94); PLATELET COUNT (AUTO) 60 K/uL (140-450); RED BLOOD CELL COUNT(AUTO) 3.29 MIL/uL (4.20-6.10); RED CELL DISTRIBUTION WIDTH 15.3 % (11.6-13.7); WHITE BLOOD COUNT (AUTO) 15.7 K/uL (4.8-10.8)
[2022-10-26] MEDS: MIDODRINE 5 MG TAB PO SCH ×3 (06:30→19:00)
[2022-10-26] MEDS: PIPERACILLIN/TAZOBACTAM 3.375 GM in DEXTROSE 5% 50 ML IV SCH ×4 (06:30→23:29)
[2022-10-26 06:42] LABS: ANION GAP 10.2 (8-16); CREATININE 0.9 mg/dL (0.6-1.3); MAGNESIUM 2.9 mg/dL (1.8-2.4); POTASSIUM 4.2 mmol/L (3.5-5.1); TOTAL BILIRUBIN 0.8 mg/dL (0.0-1.0)
[2022-10-26 06:57] LABS: ALBUMIN 2.1 g/dL (3.4-5.0)
--- NOTE | 2022-10-26 07:00 | NUR ---
RECEIVED PT ON ACVC 18,400,+5,35%. VENT WHEELS ARE LOCKED, PLUGGED INTO RED OUTLET, AMBUBAG AT BEDSIDE, ALARMS ARE SET AND AUDIBLE. SATURATION WAS 95%. SLIGHT COARSE BREATH SOUNDS, IMPROVED AFTER SUCTION. GOOD CHEST RISE, WILL CONTINUE TO MONITOR.
[2022-10-26 07:13] LABS: BASOPHILS % (MANUAL) 0 % (0-2); EOSINOPHILS % (MANUAL) 0 % (0-4); LYMPHOCYTES % (MANUAL) 9 % (20-46); MONOCYTES % (MANUAL) 8 % (5-12)
--- NOTE | 2022-10-26 07:21 | NUR ---
ENDORSED PT. TO DAY SHIFT RUSSELL,RN FOR CONTINUITY OF CARE. ALL QUESTIONS ANSWERED.
--- NOTE | 2022-10-26 08:00 | NUR ---
RECEIVED PT ON BED STUPOROUS, ON NEOSYNEPHRINE DRIP AT 50 MCG/MIN; NO SEDATION AT THIS TI,E.ETT TO VENT, TOLERATING CURRENT VENT SETING OF AV 18, TIDAL VOL 400, FIO2 85%, PEEP 5. NGT IN PLACE FOR MEDS ONLY. ASSESSMENT DONE. REPOSITIONED TO SIDE, SUPPORTED WITH PILLOWS. F/C DRAINING VERY SCANT DARK CLOUDY LAVERNE URINE. KEPT CLEAN AND DRY. AFEBRILE. ST PER MONITOR.
--- NOTE | 2022-10-26 08:00 | NUR ---
NEOSYNEPHRINE DRIP TITRATED DOWN TO 40 MCG/MIN. CONT TO MONITOR.
[2022-10-26] MEDS: BENZTROPINE 1 MG TAB PO SCH ×2 (09:00→20:37)
[2022-10-26] MEDS: ENOXAPARIN 40 MG/0.4 ML SYR SUBQ SCH (09:00)
[2022-10-26] MEDS: VALPROIC ACID 250 MG/5 ML UDC NG SCH ×2 (09:24→20:35)
[2022-10-26] MEDS: MAGNESIUM HYDROXIDE 2400 MG/30 ML UDC NG PRN (09:27)
[2022-10-26] MEDS: levETIRAcetam 500 MG TAB PO SCH ×2 (09:28→20:36)
[2022-10-26] MEDS: POLYETHYLENE GLYCOL 17 GM/PKT PO SCH (09:29)
--- NOTE | 2022-10-26 09:30 | NUR ---
FIOS TITRATED DOWN TO 40%. BY RT. CONT TO MONITOR. O2 SAT 95-96%.
--- NOTE | 2022-10-26 10:45 | NUR ---
DR. REED HERE, UPDATED ON PT CONDITION. NEW ORDER NOTED AND CARRIED OUT. NEOSYNEPHRINE DRIP NOW AT 30 MCG/MIN. CONT TO MONITOR.
--- NOTE | 2022-10-26 11:00 | NUR ---
MYLES DRIP OFF. CONT TO MONITOR.
[2022-10-26] MEDS: NACL 0.9% 1,000 ML IV SCH (11:54)
[2022-10-26] MEDS ORDERED: bisacodyL 10 MG SUPP RC PRN (13:30)
--- NOTE | 2022-10-26 18:00 | NUR ---
DR. STALLINGS HERE, UPDATED ON PT CONDITION.
--- NOTE | 2022-10-26 19:16 | NUR ---
ENDORSED TO INCOMING PM NURSE GEN MUSTAPHA CONDITION CRITICAL.
--- NOTE | 2022-10-26 19:45 | NUR ---
RECEIVED PT. FROM DAY SHIFT MARY WELLS. PT. OBTUNDED. EYES NO REACTION TO LIGHT AND ACCOMODATION. CONT. ON ETT TO VENT: A/C RATE 18, TV 400, FIO2 40%, PEEP 5 AND O2 SAT 96%. BILATERAL LUNG SOUNDS DIMINISHED. CARDIAC RHYTHM 103 SINUS TACHYCARDIA. IV TO LEFT UPPER ARM PICC LINE PATENT AND INTACT. INFUSING NS AT 50ML/HR. ABDOMINAL SOUNDS HYPOACTIVE. PT. WITH RIGHT NGT RUNNING VITAL AF 1.2 AT 20ML/HR AND TOLERATING WELL, WITH MINIMAL GASTRIC RESIDUAL. PT. SKIN IS INTACT. ROMERO CATHETER TO GRAVITY, PATENT, INTACT AND URINE COLOR DARK LAVERNE. PROVIDED SAFE AND QUIET ENVIRONMENT. REPOSITIONED PT. AND PLACED COMFORTABLY. NO RESPIRATORY DISTRESS NOTED. NO S/S OF PAIN AT THIS TIME. WILL CONTINUE TO MONITOR.
[2022-10-26] MEDS: AMIODARONE 200 MG TAB NG SCH (20:41)
[2022-10-27] VITALS (25 sets, daily range): BP systolic 134–156; BP diastolic 73–96
[2022-10-27] MEDS: MIDODRINE 5 MG TAB PO SCH ×4 (06:00→17:30)
[2022-10-27] MEDS: PIPERACILLIN/TAZOBACTAM 3.375 GM in DEXTROSE 5% 50 ML IV SCH ×3 (06:12→17:16)
[2022-10-27 06:31] LABS: ALBUMIN 1.7 g/dL (3.4-5.0); ANION GAP 10.2 (8-16); CARBON DIOXIDE 28.3 mmol/L (21-32); CREATININE 0.8 mg/dL (0.6-1.3); MAGNESIUM 2.7 mg/dL (1.8-2.4); POTASSIUM 3.5 mmol/L (3.5-5.1); TOTAL BILIRUBIN 0.8 mg/dL (0.0-1.0)
[2022-10-27 06:56] LABS: BASOPHILS % (AUTO) 0.1 % (0.0-2.0); EOSINOPHILS % (AUTO) 0.3 % (0.0-4.0); HEMATOCRIT 31.9 % (36-52); HEMOGLOBIN 10.9 g/dL (12.0-18.0); LYMPHOCYTES # (AUTO) 1.3 K/uL (2.0-11.5); LYMPHOCYTES % (AUTO) 10.7 % (20.5-51.1); MEAN CORPUSCULAR HEMOGLOBIN 35 pg (27-31); MEAN CORPUSCULAR HGB CONC 34 g/dL (33-37); MEAN CORPUSCULAR VOLUME 101.3 fL (80-94); MONOCYTES # (AUTO) 0.8 K/uL (0.8-1.0); MONOCYTES % (AUTO) 6.7 % (1.7-9.3); NEUTROPHILS # (AUTO) 9.6 K/uL (1.8-7.7); NEUTROPHILS % (AUTO) 82.2 % (42.2-75.2); RED BLOOD CELL COUNT(AUTO) 3.15 MIL/uL (4.20-6.10); RED CELL DISTRIBUTION WIDTH 14.8 % (11.6-13.7); WHITE BLOOD COUNT (AUTO) 11.7 K/uL (4.8-10.8)
[2022-10-27 07:01] LABS: PLATELET COUNT (AUTO) 50 K/uL (140-450)
--- NOTE | 2022-10-27 07:18 | NUR ---
ENDORSED PT. TO DAY SHIFT MARY MUIR FOR CONTINUITY OF CARE. ALL QUESTIONS ANSWERED.
--- NOTE | 2022-10-27 07:30 | NUR ---
Received pt responsive to pain stimuli. ETT to vent settings, AC VC TV 400 PEEP 5 FiO@@45%. Sinus rhythm on monitor. NG-tube to right nare infusing Vital 1.2 @50ml/hr with FWF 50ml Q8hr. Donovan catheter draining to bedside drainage. PICC line on left upper arm infusing NS@50ml/hr. Peripheral IV 20 gauge intact and saline locked on right upper arm. Safety precautions in place.
--- NOTE | 2022-10-27 08:07 | NUR ---
RECEIVED ON A PB 840 VENTILATOR (AGILITI #0385) PLUGGED INTO RED OUTLET TOLERATING WELL WITHOUT ADVERSE REACTIONS NOTED TO AN ENDOTRACHEAL TUBE #7.5 SECURED AT 25cm TEETH/GUM LINE WITH AN ANCHOR FAST CUFF PRESSURE CHECKED NOTED AMBU BAG AT BEDSIDE STABLE EQUAL CHEST RISE ENDOTRACHEAL TUBE SUCTION FOR LARGE THICK YELLOW/GREEN SECRETIONS AIRWAY PATENT
[2022-10-27] MEDS: AMIODARONE 200 MG TAB NG SCH ×2 (08:24→21:27)
[2022-10-27] MEDS: levETIRAcetam 500 MG TAB PO SCH ×2 (08:25→21:28)
[2022-10-27] MEDS: VALPROIC ACID 250 MG/5 ML UDC NG SCH ×2 (08:25→21:27)
[2022-10-27] MEDS: POLYETHYLENE GLYCOL 17 GM/PKT PO SCH (08:26)
[2022-10-27] MEDS: BENZTROPINE 1 MG TAB PO SCH ×2 (08:26→21:27)
[2022-10-27] MEDS: ENOXAPARIN 40 MG/0.4 ML SYR SUBQ SCH (08:27)
--- NOTE | 2022-10-27 09:00 | NUR ---
Seen and examined by Dr. Julian.
--- NOTE | 2022-10-27 09:28 | NUR ---
STABLE GOOD CHEST RISE AIRWAY PATENT SATURATION 96% OM FIO2 OF 45% PEEP 5cmH2O TITRATED FIO2 TO 40%
--- NOTE | 2022-10-27 12:54 | NUR ---
DR. ELSIE ZHOU ROUNDING IN ICU; ON OR ABOUT THIS TIME PER WOOD/METAL MOCKUP MAKER FOREMENTIONED MD PLACED PATIENT ON CPAP TRIAL NOTED; MARTIN ZHOU; CPAP TOLERATED TODAY; NO ABG REQUIRED; CPAP TRIAL IN AM WITH ABG
--- NOTE | 2022-10-27 12:55 | NUR ---
Dr. Riley placed pt on CPAP. RT Fuentes made aware.
--- NOTE | 2022-10-27 13:20 | NUR ---
Pt had medium soft brown bowel movement. Pericare and wong care rendered and tolerated well.
--- NOTE | 2022-10-27 13:33 | NUR ---
TOLERATING CPAP TRIAL WELL WITHOUT EVIDENCE OF PULMONARY DISTRESS NOTED EQUAL CHEST RISE ENDOTRACHEAL SUCTION FOR SMALL THIN YELLOW SECRETIONS AIRWAY PATENT
[2022-10-27] MEDS: VANCOMYCIN HCL 1.25 GM in DEXTROSE 5% 250 ML IV SCH (14:02)
--- NOTE | 2022-10-27 17:34 | NUR ---
Pt had large formed soft brown stool. Kept clean and dry.
--- NOTE | 2022-10-27 18:37 | NUR ---
10/27/22 RD FOLLOW UP COMPLETED. PLEASE REFER TO NUTRITION ASSESSMENT UNDER CARE ACTIVITY FOR ESTIMATED NUTRITIONAL NEEDS. 1.CONTINUE WITH VITAL AF 1.2 @ 50ML/HR PT TOLERATES -FWF 50 ML Q8H OR PER MD 2. MONITOR GASTRIC RESIDUALS 3. CONSULT RD PRN 4. RD TO FOLLOW-UP 3-5 DAYS, MODERATE RISK SOLANGE CHAN RD
--- NOTE | 2022-10-27 19:15 | NUR ---
RT placed pt back onto AC VC mode.
--- NOTE | 2022-10-27 19:19 | NUR ---
Endorsed to shift foreman nurse Dolly for continuity of care.
--- NOTE | 2022-10-27 19:40 | NUR ---
RECEIVED PT. FROM DAY SHIFT MARY MUIR. PT. AROUSABLE TO TOUCH / VOICE AND OPEN EYES IF CALLING HIS NAME. ALSO NOW CAN NOD HEAD IF ASKED IF OK. EYES PERRL. BILATERAL LUNG SOUNDS DIMINISHED. ABDOMINAL SOUNDS ACTIVE. CONT. ON ETT TO VENT A/C VC RATE 18, TV 400, FIO2 40%, PEEP 5 AND O2 SAT 94%. SINUS RHYTHM ON THE MONITOR. IV SITE TO LEFT UPPER ARM PICC LINE INFUSING NS AT 50ML/HR. WITH RIGHT NGT RUNNING FEEDING VITAL AF 1.2 AT 50 ML/HR. SKIN INTACT. ROMERO CATHETER IN PLACED WITH DARK [place] COLOR URINE. MAKE ALL NEEDS KNOWN. REPOSITIONED AND PROVIDED SAFE AND QUIET ENVIRONMENT. NO S/S OF RESPIRATORY DISTRESS,NO S/S OF PAIN. WILL CONT. TO MONITOR
[2022-10-28] VITALS (13 sets, daily range): BP systolic 124–169; BP diastolic 56–87
[2022-10-28] MEDS: PIPERACILLIN/TAZOBACTAM 3.375 GM in DEXTROSE 5% 50 ML IV SCH ×5 (00:15→23:46)
[2022-10-28] MEDS: NACL 0.9% 1,000 ML IV SCH ×2 (04:00→23:33)
--- NOTE | 2022-10-28 04:50 | NUR ---
LAB CAME DRAWN BLOOD.
[2022-10-28 05:52] LABS: BASOPHILS % (AUTO) 0.1 % (0.0-2.0); EOSINOPHILS % (AUTO) 0.3 % (0.0-4.0); HEMATOCRIT 31.7 % (36-52); HEMOGLOBIN 10.9 g/dL (12.0-18.0); LYMPHOCYTES # (AUTO) 1.6 K/uL (2.0-11.5); LYMPHOCYTES % (AUTO) 16.4 % (20.5-51.1); MEAN CORPUSCULAR HEMOGLOBIN 35 pg (27-31); MEAN CORPUSCULAR HGB CONC 35 g/dL (33-37); MEAN CORPUSCULAR VOLUME 100.6 fL (80-94); MONOCYTES % (AUTO) 21.1 % (1.7-9.3); NEUTROPHILS # (AUTO) 5.9 K/uL (1.8-7.7); NEUTROPHILS % (AUTO) 62.1 % (42.2-75.2); PLATELET COUNT (AUTO) 34 K/uL (140-450); RED BLOOD CELL COUNT(AUTO) 3.15 MIL/uL (4.20-6.10); RED CELL DISTRIBUTION WIDTH 14.8 % (11.6-13.7); WHITE BLOOD COUNT (AUTO) 9.5 K/uL (4.8-10.8)
[2022-10-28] MEDS: MIDODRINE 5 MG TAB PO SCH ×5 (06:00→23:50)
--- NOTE | 2022-10-28 07:17 | NUR ---
ENDORSED PT. TO DAY SHIFT MARY MUIR FOR CONTINUITY OF CARE. ALL QUESTIONS ANSWERED.
[2022-10-28 07:23] LABS: ALBUMIN 1.5 g/dL (3.4-5.0); ANION GAP 11.2 (8-16); CREATININE 0.7 mg/dL (0.6-1.3); MAGNESIUM 2.3 mg/dL (1.8-2.4); POTASSIUM 3.2 mmol/L (3.5-5.1); TOTAL BILIRUBIN 0.7 mg/dL (0.0-1.0)
--- NOTE | 2022-10-28 07:35 | NUR ---
Received pt with eyes closed, but able to respond to voice by nodding and gestures. ETT to vent settings AC VC TV 400 rate 18 PEEP 5 and FiO2@40%. Sinus rhythm on monitor. NG-tube to right nare infusing Vital 1.2 @50ml/hr with FWF 50ml Q8hr. Donovan catheter intact and draining to BSD. PICC line on left upper arm intact and infusing NS@50ml/hr. Peripheral IV 20 gauge on right upper arm saline locked. Safety precautions in place.
[2022-10-28] MEDS: ENOXAPARIN 40 MG/0.4 ML SYR SUBQ SCH (08:40)
[2022-10-28] MEDS: AMIODARONE 200 MG TAB NG SCH ×2 (08:42→21:38)
[2022-10-28] MEDS: levETIRAcetam 500 MG TAB PO SCH ×2 (08:43→21:39)
[2022-10-28] MEDS: POLYETHYLENE GLYCOL 17 GM/PKT PO SCH (08:43)
[2022-10-28] MEDS: VALPROIC ACID 250 MG/5 ML UDC NG SCH ×2 (08:43→21:39)
[2022-10-28] MEDS: BENZTROPINE 1 MG TAB PO SCH ×2 (08:44→21:39)
--- NOTE | 2022-10-28 09:28 | NUR ---
Dr. Riley at bedside and placed pt on CPAP. Reported that pt tolerated CPAP well yesterday for 6 hours. New order for ABG at 1030 and call with results. RT Fuentes made aware.
[2022-10-28] MEDS: VANCOMYCIN HCL 1.25 GM in DEXTROSE 5% 250 ML IV SCH ×2 (09:34→21:38)
[2022-10-28] MEDS: POTASSIUM CHLORIDE 20% 40 MEQ/15 ML UDC GT PRN (09:42)
--- NOTE | 2022-10-28 10:42 | NUR ---
STABLE TOLERATING CPAP TRIAL WITHOUT DISTRESS NOTED EQUAL CHEST RISE ENDOTRACHEAL SUCTION FOR SMALL THIN YELLOW SECRETIONS AIRWAY PATENT
--- NOTE | 2022-10-28 10:52 | NUR ---
ABG DRAWN FOR CPAP TRIAL NO ADVERSE REACTIONS NOTED
--- NOTE | 2022-10-28 11:23 | NUR ---
CALLED DR. ELSIE ZHOU AT [facility] [phone] TO REVIEW CPAP TRIAL ABG RESULTS EMILY/EXCHANGE TO PAGE THE FOREMENTIONED MD PATIENT INFORMATION AND CALL BACK NUMBER GIVEN
--- NOTE | 2022-10-28 11:37 | NUR ---
CALL BACK FROM DR. ELSIE ZHOU REVIEWED CPAP TRIAL X 2HOURS PEEP 5cmH2O PS [id number]; ABG RESULTS; LOC AWAKE ALERT RESPONSIVENESS; SpVt/SpRR STATED "THAT'S FINE" BRITANY ZHOU: EXTUBATE PATIENT; NOTIFIED MD OF ADMINISTRATIONS REQUEST TO KEEP PATIENT INTUBATED UNTIL 1230pm (4 DAYS); MD EVEN THOUGH BAFFLED STATED "THAT'S FINE - OKAY) Addendum: 10/28/22 at 1155 by Alfredo Lambert RT REQUEST AT BEDSIDE BY XIMENA/MARY
--- NOTE | 2022-10-28 13:15 | NUR ---
COURTESY CALL TO DR. ELSIE ZHOU AT [facility] [phone] DAVIS/EXCHANGE TO FORWARD THE FOLLOWING MESSAGE WITH NO RETURN CALL REQUIRED: EXTUBATION AT 1308; CA AT 40%; SATURATION 95%; STABLE PATIENT INFORMATION AND RETURN PHONE NUMBER GIVEN
--- NOTE | 2022-10-28 14:30 | NUR ---
Notified Dr. Riley that pt was extubated today. New order for ST josepal. If pt passes, okay to discontinue NG-tube.
--- NOTE | 2022-10-28 18:57 | NUR ---
1830 pts sats dropped to 88%. increased fio2 to 100%. sats improved to 91%. pt is on cool aerosol
--- NOTE | 2022-10-28 19:18 | NUR ---
ENDORSED TO MATERIAL HANDLING EQUIPMENT STEVEDORE NURSE MUSTAPHA FOR CONTINUITY OF CARE.
--- NOTE | 2022-10-28 19:45 | NUR ---
RECEIVED PT. FROM DAY SHIFT RNWOOD. PT. WIDE AWAKE, ABLE TO TALK WHEN ASKING, BY SAYING OKAY, FOLLOW COMMANDS. ON FACEMASK 100%, O2 SAT 90%. BILATERAL LUNGS CRACKLES. MODERATE SPUTUM CLEAR YELLOW COLOR. EYES PERRL. SINUS TACHYCARDIA HR 102 ON THE MONITOR. IV PICC LINE TO LEFT UPPER ARM PATENT AND INTACT, INFUSING NS 50ML/HR. ABDOMINAL SOUNDS ACTIVE. IV TO RIGHT UPPER ARM 20G CAPPED AND FLUSHED. WITH RIGHT NGT INFUSING VITAL AF 1.2 AT 50 ML/HR, TOLERATING WELL, MINIMAL RESIDUAL. SKIN INTACT. ROMERO CATHETER TO GRAVITY, COLOR DARK LAVERNE. REPOSITIONED AND PROVIDED SAFE AND QUIET ENVIRONMENT. NO S/S OF RESPIRATORY DISTRESS. NO S/S OF PAIN. WILL CONT. TO MONITOR.
[2022-10-29] VITALS (13 sets, daily range): BP systolic 102–150; BP diastolic 38–83
--- NOTE | 2022-10-29 01:47 | NUR ---
CHANGED PATIENT FROM COOL AEROSOL TO OXYMIZER 15L. SATS IMPROVED. WILL TITRATE FIO2
--- NOTE | 2022-10-29 03:48 | NUR ---
0315 LOWERED LITER FLOW TO 13LITERS. SATS 94%
[2022-10-29] MEDS: MIDODRINE 5 MG TAB PO SCH ×3 (06:00→17:30)
[2022-10-29] MEDS: PIPERACILLIN/TAZOBACTAM 3.375 GM in DEXTROSE 5% 50 ML IV SCH ×3 (06:10→17:01)
[2022-10-29] MEDS: ACETAMINOPHEN 325 MG TAB PO PRN (06:10)
[2022-10-29 06:16] LABS: CREATININE 0.5 mg/dL (0.6-1.3)
--- NOTE | 2022-10-29 07:24 | NUR ---
ENDORSED PT. TO WOOD HERNANDEZ FOR CONTINUITY OF CARE
--- NOTE | 2022-10-29 07:30 | NUR ---
Received pt responsive to name with periods of confusion. On oxymizer at 15L FiO2@100%. Sinus rhythm on monitor. NG-tube on right nare intact and infusing Vital 1.2@50ml/hr with FWF 50 Q8hr. Donovan catheter intact and draining to bedside drainage. Picc line on left upper arm intact and infusing NS@50ml/hr. Peripheral IV 20 gauge on right upper arm saline locked. Safety precautions in place.
[2022-10-29 07:52] LABS: HEMATOCRIT 31.4 % (36-52); HEMOGLOBIN 10.9 g/dL (12.0-18.0); MEAN CORPUSCULAR HEMOGLOBIN 35 pg (27-31); MEAN CORPUSCULAR HGB CONC 35 g/dL (33-37); MEAN CORPUSCULAR VOLUME 99.6 fL (80-94); RED BLOOD CELL COUNT(AUTO) 3.16 MIL/uL (4.20-6.10); RED CELL DISTRIBUTION WIDTH 14.6 % (11.6-13.7); WHITE BLOOD COUNT (AUTO) 13.9 K/uL (4.8-10.8)
--- NOTE | 2022-10-29 07:58 | NUR ---
RT titrated O2 down to 13 L via oxymizer. Addendum: 10/29/22 at 0800 by Emmy Sprague RN O2 sat 90%.
[2022-10-29 08:32] LABS: LYMPHOCYTES % (MANUAL) 14 % (20-46); MONOCYTES % (MANUAL) 10 % (5-12); PLATELET COUNT (AUTO) 38 K/uL (140-450)
[2022-10-29] MEDS: VALPROIC ACID 250 MG/5 ML UDC NG SCH ×2 (08:57→21:09)
[2022-10-29] MEDS: BENZTROPINE 1 MG TAB PO SCH ×2 (08:58→21:10)
[2022-10-29] MEDS: levETIRAcetam 500 MG TAB PO SCH ×2 (08:58→21:10)
[2022-10-29] MEDS: AMIODARONE 200 MG TAB NG SCH ×2 (08:58→21:09)
[2022-10-29] MEDS: KCL 20 MEQ/WATER INJ PREMIX 200 ML IV PRN (08:59)
[2022-10-29] MEDS: ENOXAPARIN 40 MG/0.4 ML SYR SUBQ SCH (09:00)
[2022-10-29] MEDS: POLYETHYLENE GLYCOL 17 GM/PKT PO SCH (09:00)
[2022-10-29] MEDS ORDERED: FUROSEMIDE 40 MG/4 ML VIAL IVP SCH (09:15)
--- NOTE | 2022-10-29 09:17 | NUR ---
Dr. Riley at bedside examining patient. New order received for lasix.
[2022-10-29] MEDS: VANCOMYCIN HCL 1.25 GM in DEXTROSE 5% 250 ML IV SCH ×2 (09:42→21:08)
--- NOTE | 2022-10-29 13:45 | NUR ---
ST davis done at bedside and per ST, angie davis. ST recommends puree diet with nectar thickened liquid. Addendum: 10/29/22 at 1418 by Emmy Sprague RN Dr. Qiuntana made aware. New orders received.
--- NOTE | 2022-10-29 14:25 | NUR ---
NGTUBE TO RIGHT NARE DISCONTINUED PER MD ORDERED. PT TOLERATED WELL. NO BLEEDING OR SIGNS OF INJURY.
--- NOTE | 2022-10-29 19:12 | NUR ---
Endorsed to material handler 1st shift Dolly for continuity of care.
--- NOTE | 2022-10-29 19:35 | NUR ---
PT PLACED ON HFNC 30L/100% FOR INCREASED WOB AND OXYGEN LEVELS DROPPING. PT ZULAY WELL. RN NOTIFIED
--- NOTE | 2022-10-29 19:40 | NUR ---
RECEIVED PT. FROM DAY SHIFT MARY MUIR. PT. WIDE AWAKE, ALERT AND ORIENTED X1 ( CAN SAY OKAY IF ASKED HOW IS HE DOING). HE FOLLOWS SIMPLE COMMANDS. EYES PERRL. BILATERAL LUNGS CRACKLES, WITH MODERATE CREAMY THICK SECRETIONS. CONT. ON OXIMIZER 30L/MIN AND FIO2 100%. CANDY FEEDER SINUS RHYTHM. IV TO LEFT UPPER ARM PICC LINE, PATENT AND INTACT INFUSING NS AT 50ML/HR. IV TO RIGHT UPPER ARM PERIPHERAL LINE CAPPED AND FLUSHED. PT. ON PUREE THICK LIQUID DIET. PER DAY SHIFT, PT. PASSED THE SWALLOW EVALUATION, BUT WHEN FED 02 SAT GOES DOWN TO 85% -89%. ROMERO CATHETER TO GRAVITY WITH DARK LAVERNE COLOR URINE. REPOSITIONED AND PROVIDED SAFE, QUIET ENVIRONMENT. SKIN INTACT. MAKE ALL NEEDS KNOWN. NO S/S OF PAIN. WILL CONT. TO MONITOR.
[2022-10-29] MEDS: NACL 0.9% 1,000 ML IV SCH (19:54)
[2022-10-30] VITALS (16 sets, daily range): BP systolic 98–150; BP diastolic 39–83
--- NOTE | 2022-10-30 04:15 | NUR ---
PT. PROVIDED BEDBATH, MARGARET CARE AND WILL ENDORSE TO THE NEXT SHIFT.
[2022-10-30] MEDS: MIDODRINE 5 MG TAB PO SCH ×4 (06:00→18:00)
[2022-10-30 06:30] LABS: CARBON DIOXIDE 28.9 mmol/L (21-32); CREATININE 0.6 mg/dL (0.6-1.3)
[2022-10-30] MEDS: PIPERACILLIN/TAZOBACTAM 3.375 GM in DEXTROSE 5% 50 ML IV SCH ×5 (06:49→17:52)
[2022-10-30 06:55] LABS: ANION GAP 10.8 (8-16)
--- NOTE | 2022-10-30 07:20 | NUR ---
Received pt awake alert and oriented x1. On O2 via high flow nasal cannula 30L FiO2 90%. Sinus rhythm on monitor. Abd with active bowel sounds. Donovan catheter intact and draining to bedside drainage. Picc line on left upper arm intact and infusing NS@50ml/hr. Peripheral IV 20 gauge on right upper arm saline locked. Safety precautions in place.
[2022-10-30 07:27] LABS: POTASSIUM 2.7 mmol/L (3.5-5.1)
--- NOTE | 2022-10-30 07:27 | NUR ---
RECEIVED CALL FROM LAB TO REPORT CRITICAL K LEVEL OF 2.7. NOTIFIED DR. CALVILLO. NEW ORDERS RECEIVED.
[2022-10-30] MEDS: KCL 20 MEQ/WATER INJ PREMIX 200 ML IV PRN (07:33)
[2022-10-30 07:38] LABS: BASOPHILS # (AUTO) 0.1 K/uL (0.00-0.22); BASOPHILS % (AUTO) 0.5 % (0.0-2.0); EOSINOPHILS % (AUTO) 0.2 % (0.0-4.0); HEMATOCRIT 28.5 % (36-52); HEMOGLOBIN 9.9 g/dL (12.0-18.0); LYMPHOCYTES % (AUTO) 7.2 % (20.5-51.1); MEAN CORPUSCULAR HEMOGLOBIN 35 pg (27-31); MEAN CORPUSCULAR HGB CONC 35 g/dL (33-37); MEAN CORPUSCULAR VOLUME 99.4 fL (80-94); MONOCYTES # (AUTO) 1.4 K/uL (0.8-1.0); MONOCYTES % (AUTO) 10.2 % (1.7-9.3); NEUTROPHILS # (AUTO) 11.3 K/uL (1.8-7.7); NEUTROPHILS % (AUTO) 81.9 % (42.2-75.2); PLATELET COUNT (AUTO) 44 K/uL (140-450); RED BLOOD CELL COUNT(AUTO) 2.87 MIL/uL (4.20-6.10); RED CELL DISTRIBUTION WIDTH 14.4 % (11.6-13.7); WHITE BLOOD COUNT (AUTO) 13.8 K/uL (4.8-10.8)
--- NOTE | 2022-10-30 08:00 | NUR ---
REPORT GIVEN TO DAY SHIFT RNWOOD FOR CONTINUITY OF CARE.
[2022-10-30] MEDS ORDERED: KCL 20 MEQ/WATER INJ PREMIX 200 ML IV SCH ×2 (08:15→13:00)
--- NOTE | 2022-10-30 08:16 | NUR ---
0815 scehduled medication for Potassium Chloride 40meQ not given due to PRN order of Potassium Chloride 40meQ given at [address] Marques order, give 40meq now and another 40 in 4 hours.
[2022-10-30] MEDS: BENZTROPINE 1 MG TAB PO SCH ×2 (08:26→21:00)
[2022-10-30] MEDS: levETIRAcetam 500 MG TAB PO SCH ×2 (08:26→21:00)
[2022-10-30] MEDS: VALPROIC ACID 250 MG/5 ML UDC NG SCH ×2 (08:27→21:00)
[2022-10-30] MEDS: AMIODARONE 200 MG TAB NG SCH ×2 (08:27→21:00)
[2022-10-30] MEDS: VANCOMYCIN HCL 1.25 GM in DEXTROSE 5% 250 ML IV SCH ×2 (08:28→21:09)
[2022-10-30] MEDS: ENOXAPARIN 40 MG/0.4 ML SYR SUBQ SCH (08:52)
--- NOTE | 2022-10-30 10:00 | NUR ---
Dr. Riley at bedside examining patient. New orders received.
[2022-10-30] MEDS: FUROSEMIDE 40 MG/4 ML VIAL IVP SCH ×2 (10:15→21:09)
--- NOTE | 2022-10-30 10:20 | NUR ---
RT placed pt on Bipap / Rate 10 FiO2@80%.
--- NOTE | 2022-10-30 10:24 | NUR ---
PER PT TO BE PLACED ON BIPAP. SETTINGS 12/6,R10 AND FIO2 80%. ALARMS ON AND FUNCTIONING. WILL CONTINUE TO MONITOR.
[2022-10-30] MEDS: NACL 0.9% 1,000 ML IV SCH (15:54)
--- NOTE | 2022-10-30 16:00 | NUR ---
Total K Arden given today 80 meQ as per MD ordered.
--- NOTE | 2022-10-30 19:27 | NUR ---
Endorsed to spine surgeon nurse Dolly for continuity of care and endorsed message from pharmacist to check Vanco trough before giving Vanco medication. If Vanco dose is less than 20, give Vanco. If Vanco greater than 20, hold Vanco and do not give.
--- NOTE | 2022-10-30 19:45 | NUR ---
RECEIVED PT. FROM DAY SHIFT RNWOOD. PT. APPEARS WEAK. ON BIPAP RATE 10, 1-12, E-6, FIO2 65% AND O2 SAT 96%. BILATERAL LUNGS SOUNDS RONCHI. EYES PERRL. SINUS RHYTHM ON THE MONITOR. IV TO LEFT UPPER ARM PICC LINE PATENT AND INTACT AND RUNNING NS AT 50ML/HR. PT. NPO EXCEPT MEDS PER DR. ZHOU. SKIN INTACT. GENERALIZED WEAKNESS AND RIGHT SIDED WEAKNESS CVA. WITH ROMERO CATHETER TO GRAVITY, PATENT AND INTACT. URINE COLOR DARK LAVERNE. REPOSITIONED, BEDLOCK AND BED PLACED IN THE LOWEST HEIGHT. MAKE ALL NEEDS KNOWN. NO S/S OF PAIN. WILL CONT. TO MONITOR.
--- NOTE | 2022-10-30 19:54 | NUR ---
LAB CALLED FOR VANCO TROUGH OF 12.3. WILL BE GIVEN VANCOMYCIN IVPB PER MD ORDERED.
--- NOTE | 2022-10-30 21:03 | NUR ---
PT. PO MEDICATIONS SCHEDULE FOR 2099 WILL NOT BE GIVEN. PT. TOO WEAK TO SWALLOW. CONT. ON BIPAP RATE 10, FIO2 65% AND 02 SAT 96%. WILL NOTIFY
--- NOTE | 2022-10-30 21:31 | NUR ---
TEXTED DR. ZHOU AND REPORTED THAT PT. PO MEDICATIONS SCHEDULE FOR 2100 NOT GIVEN DUE TO PT. TOO WEAK TO SWALLOW. ON BIPAP RATE 10, 1-12, E-6, FIO2 65%, 02 SAT 96%.
--- NOTE | 2022-10-30 21:37 | NUR ---
DR. ZHOU TEXTED BACK AND STATED TOMORROW MORNING EITHER PT. WILL BE PLACED NGT OR HE WILL INTUBATE THE PT. WILL ENDORSE TO THE NEXT SHIFT.
[2022-10-31] VITALS (23 sets, daily range): BP systolic 94–151; BP diastolic 53–88
[2022-10-31] MEDS: MORPHINE SULFATE 2 MG/ML SYR IVP PRN (00:35)
[2022-10-31] MEDS: PIPERACILLIN/TAZOBACTAM 3.375 GM in DEXTROSE 5% 50 ML IV SCH ×4 (00:39→18:04)
--- NOTE | 2022-10-31 04:00 | NUR ---
LAB CAME DRAWN BLOOD.
[2022-10-31] MEDS: MIDODRINE 5 MG TAB PO SCH ×4 (06:00→18:04)
[2022-10-31 06:11] LABS: ANION GAP 9.9 (8-16); CREATININE 0.6 mg/dL (0.6-1.3)
[2022-10-31 06:24] LABS: POTASSIUM 2.9 mmol/L (3.5-5.1)
--- NOTE | 2022-10-31 06:27 | NUR ---
LAB CALLED FOR K LEVEL OF 2.9. WILL BE GIVEN KCL 20MEQ IVPB PRN AND WILL NOTIFY MD. WILL ENDORSE TO THE NEXT SHIFT.
--- NOTE | 2022-10-31 06:39 | NUR ---
TEXTED DR. ZHOU, REPORTED K LEVEL 2.9 AND HE ORDERED TO GIVE KCL 20 MEQ IVPB X 2.
[2022-10-31] MEDS: KCL 20 MEQ/WATER INJ PREMIX 200 ML IV PRN (06:45)
--- NOTE | 2022-10-31 07:15 | NUR ---
RECEIVED PATIENT FROM NIGHT MARY LUCIANO. PT.BiPAP MASK 09/24, RATE 10, FiO2 45%. HAD MORPHINE 2 MG AT 0035AM. RR 37-40/MINUTE. ON PUREE NECTAR-THICKENED DIET, NPO DUE TO LEVEL OF CONSCIOUSNESS. IVF NS 50 MLS/HR. ROMERO CATHETER. K+ 2.9, REPLACING WITH 40 mEq. PLATELET 44 TODAY.
--- NOTE | 2022-10-31 07:18 | NUR ---
ENDORSED PT. TO DAY SHIFT MARY HENDRIX FOR CONTINUITY OF CARE.
[2022-10-31] MEDS: ENOXAPARIN 40 MG/0.4 ML SYR SUBQ SCH (07:53)
[2022-10-31 08:16] LABS: BASOPHILS # (AUTO) 0.1 K/uL (0.00-0.22); BASOPHILS % (AUTO) 0.5 % (0.0-2.0); EOSINOPHILS # (AUTO) 0.1 K/uL (0-0.4); EOSINOPHILS % (AUTO) 0.8 % (0.0-4.0); HEMATOCRIT 29.4 % (36-52); LYMPHOCYTES # (AUTO) 1.5 K/uL (2.0-11.5); LYMPHOCYTES % (AUTO) 11.4 % (20.5-51.1); MEAN CORPUSCULAR HEMOGLOBIN 34 pg (27-31); MEAN CORPUSCULAR HGB CONC 34 g/dL (33-37); MEAN CORPUSCULAR VOLUME 100.1 fL (80-94); MONOCYTES # (AUTO) 1.2 K/uL (0.8-1.0); MONOCYTES % (AUTO) 9.6 % (1.7-9.3); NEUTROPHILS % (AUTO) 77.7 % (42.2-75.2); PLATELET COUNT (AUTO) 66 K/uL (140-450); RED BLOOD CELL COUNT(AUTO) 2.94 MIL/uL (4.20-6.10); RED CELL DISTRIBUTION WIDTH 14.6 % (11.6-13.7); WHITE BLOOD COUNT (AUTO) 12.8 K/uL (4.8-10.8)
[2022-10-31] MEDS: VANCOMYCIN HCL 1.25 GM in DEXTROSE 5% 250 ML IV SCH ×2 (08:16→21:02)
[2022-10-31] MEDS: FUROSEMIDE 40 MG/4 ML VIAL IVP SCH ×2 (08:20→21:03)
[2022-10-31] MEDS ORDERED: ROCURONIUM 50 MG/5 ML VIAL IV SCH (10:00)
[2022-10-31] MEDS ORDERED: ETOMIDATE 20 MG/10 ML VIAL IVP SCH (10:00)
--- NOTE | 2022-10-31 10:00 | NUR ---
INTUBATED PATIENT STILL TACHYPNEIC AT 38-40s, INTUBATED BY DR. ZHOU, AFTER ETOMIDATE AND ROCURONIUM GIVE WITH SIZE 8, 25 CM. AT THE TEETH, AC/VC 60%, +5, 400 MLS, f18. OGT INSERTED, PRN ATIVAN FOR AGITATION, AND PRN PAIN MEDICATION. TUBE FEEDING ORDERED BEFORE. CXR ORDERED.
--- NOTE | 2022-10-31 10:00 | NUR ---
PT INTUBATED WITH A 8.0 ETT SECURED @25 TEETH/GUM. ETT PLACEMENT CONFIRMED WITH CO2 COLOR CHANGE AND BILATERAL BREATH SOUNDS. CXR TO BE ORDERED.
--- NOTE | 2022-10-31 10:18 | NUR ---
PT PLACED ON VENT. SETTINGS AC 18, VT400, PEEP 5 AND FIO2 60%.VENT IS PLUGGED INTO A RED OUTLET WITH ALARMS ON AND FUNCTIONING. WILL CONTINUE TO MONITOR.
[2022-10-31] MEDS: levETIRAcetam 500 MG TAB PO SCH ×2 (11:00→21:06)
[2022-10-31] MEDS: VALPROIC ACID 250 MG/5 ML UDC NG SCH ×2 (11:00→21:03)
[2022-10-31] MEDS: LORazepam 2 MG/ML VIAL IVP PRN ×2 (11:05→18:14)
[2022-10-31] MEDS: AMIODARONE 200 MG TAB NG SCH ×2 (11:15→21:04)
[2022-10-31] MEDS: HYDROcodone/APAP 5/325 MG 1 TAB TAB PO PRN ×2 (11:15→18:06)
[2022-10-31] MEDS: BENZTROPINE 1 MG TAB PO SCH ×2 (11:20→21:05)
[2022-10-31] MEDS: NACL 0.9% 1,000 ML IV SCH (11:54)
--- NOTE | 2022-10-31 12:05 | NUR ---
DC PLANNING: PATIENT INTUBATED SEDATED FIO2 100% ON PROPOFOL , FENTANYL AND AMIODARONE DRIP, AND IV ABX VANCOMYCIN LIZETH FOLLOWING . CM TO FOLLOW Addendum: 11/06/22 at 1710 by Patience Lopez RN DC PLANNING: STILL INTUBATED SEDATED FAILED CPAP TRIAL NEW ORDER TO TRANSFER HIM TO [facility]. SPOKE WITH PT'S SISTER AGREED WITH [facility]. PER DUSTIN NO BED AVAILABLE IN ALL [facility] AND [facility]. CM TO FOLLOW Addendum: 11/08/22 at 0912 by Patience Lopez RN DC PLANNING: STILL INTUBATED SEDATED, ON PRECEDEX DRIP. FIO2 21% PEEP OF 5. CONTINUED IV ABX ZOSYN . YAMILKA CHAN AT [facility] NO BED AVAILABLE. DISCUSSED WITH ATTENDING DR FOLEY WILL SUGGEST LIZETH TO CONSIDER TRACH/PEG AT [facility]. CM TO FOLLOW Addendum: 11/11/22 at 1126 by Patience Lopez RN DC PLANNING: RECEIVED A MESSAGE FROM DR CHERY THAT IF ITS OK TO PERFORM TRACH AND PEG HERE AT [facility] THAT [facility]. SPOKE WITH DR BARNEY ([facility]) STATED OK TO DO THE TRACH HER WAIT 3 DAYS AND PATIENT CAN BE SEND TO [facility] FOR FURTHER CARE. SCHEDULED FOR TRACH AND PEG TODAY AT [address] CHERY. CM TO FOLLOW Addendum: 11/12/22 at 1613 by Patience Lopez RN DC PLANNING: PATIENT GOT ACCEPTED AT [facility] ACCEPTING DR ZHOU. GOING TO ROOM ICU3 # TO GIVE REPORT [phone] ARRANGED TRANSPORT WITH [facility] COST SPECIALIST TIME WITH IN 1 HR. NOTFIED ICU NURSE AND JACKSNO CHARGE NURSE. CM TO FOLLOW
--- NOTE | 2022-10-31 17:10 | NUR ---
10/31/22 RD FOLLOW UP COMPLETED PLEASE REFER TO NUTRITION ASSESSMENT UNDER CARE ACTIVITY FOR ESTIMATED NUTRITIONAL NEEDS. 1. RECOMMEND INCREASING VITAL AF 1.2 TO GOAL RATE 60 ML/HR, FWF 150 ML Q6H TOLERATED 2. RECOMMEND ADDING PROSOURCE BID FOR LOW CASIE (PROVIDES 120 KCAL AND 30 GM PROTEIN DAILY) - WITH PROSOURCE BID, PROVIDES 1440 ML TOTAL VOLUME, 1848 KCAL, 138 GM PROTEIN AND 1760 ML FREE WATER DAILY MEETING 96% ESTIMATED KCAL NEEDS AND >100% ESTIMATED PROTEIN NEEDS; ADEQUATE - START TF AT 1O ML/HR INCREASE BY 1O ML Q4H UNTIL GOAL IS REACHED TOLERATED 2. MONITOR GI SYMPTOMS, GASTRIC RESIDUALS AND NUTRITION RELATED LAB VALUES 3. CONSULT RD PRN 4. RD TO FOLLOW-UP 2-3 DAYS, HIGH RISK REVIEWED BY MEGHAN CHAVIS RD
--- NOTE | 2022-10-31 19:20 | NUR ---
RECEIVED REPORT FROM RUMA HERNANDEZ FOR CONTINUITY OF CARE. PT IS RECEIVED LYING SUPINE WITH A ETT TO VENT WITH SETTING AC/VC FIO2 45%, tv 400, rate 18, and peep 5. his lung sound are clear , oral care given. he has a ogt in place infusing vital a r at 50cc/hour snd free water 50cc q8 hour. pt has no fever. temperature 97.6 his vital signs are wnl . he hs a wong cath draining adequate amts of clear pale urine. he had a bm reported for today. he has a connie picc-line for iv access with ns at 50cc. pt has no sedation per doctors orders. he has no overt distress noted.
--- NOTE | 2022-10-31 19:35 | NUR ---
REPORT GIVEN TO DILCIA OSMAN. PT. ORALLY INTUBATED AC/VC 45%. PT. ABLE TO NOD WHEN ASKED ABOUT PAIN, GIVEN NORCO, HAS ANXIETY GIVEN ATIVAN. DR. ZHOU DOES NOT WANT TO SEDATE THE PATIENT, SINCE THE PATIENT IS CALM. PT. DOES NOT PULL ANY TUBE OR LINES, NO RESTRAINTS. MOVED BOWELS ONCE, LARGE AMOUNT. STARTED ON TUBE FEEDING THIS EVENING. [facility] CALLED UP FOR ASSESSMENT OF PLACEMENT. NO ORDER FOR TRACHE. LEFT UPPER ARM PICC LINE DRESSING CHANGED, PICC RN RADHA, WROTE A '2 CM. OUT' ON THE PICC WITNESSED BY ANOTHER RN LEIGH. NO SWELLING, A SMALL AMOUNT OF ECCHYMOSIS AT THE ENTRY SITE. BLOOD CULTURE WAS DONE. Addendum: 10/31/22 at 1942 by Agency 08 MARY HERNANDEZ HANDER OVER TO DILCIA HERNANDEZ, THAT THE FAMILY WAS NOT INFORMED YET THAT THE PT. WAS RE-INTUBATED TODAY. DILCIA MILLER SAID THAT SHE WILL CALL THE FAMILY.
--- NOTE | 2022-10-31 20:52 | NUR ---
PHONE CALL TO PTS NOK,SISTER DAVIAN PERALES, RE; PT REINTUBATED, PER AM NURSE RUMA, THEY HAVE NOT NOTIFIED THE FAMILY.NO ANSWER AND VOICEMAIL HAS NOT BEEN SET UP.
[2022-11-01] VITALS (20 sets, daily range): BP systolic 12–147; BP diastolic 55–74
[2022-11-01] MEDS: PIPERACILLIN/TAZOBACTAM 3.375 GM in DEXTROSE 5% 50 ML IV SCH ×6 (00:21→23:19)
[2022-11-01] MEDS: MIDODRINE 5 MG TAB PO SCH ×5 (00:22→23:14)
[2022-11-01] MEDS: NACL 0.9% 1,000 ML IV SCH (05:47)
[2022-11-01 06:40] LABS: ANION GAP 9.8 (8-16); CREATININE 0.7 mg/dL (0.6-1.3)
[2022-11-01 07:10] LABS: POTASSIUM 2.8 mmol/L (3.5-5.1)
--- NOTE | 2022-11-01 07:15 | NUR ---
RECEIVED PATIENT FROM NIGHT MARY OSMAN. PT. INTUBATED ORALLY AC/VC. AWAKE, NODS TO QUESTION OF PAIN. ASKED IF HE KNOWS WHERE HE IS, PT. NODS ALSO. NO RESTRAINTS, DOES NOT TRY TO PULL OR FLEX HIS ARMS. TUBE FEEDING BY OGT. ROMERO CATHETER. NSR WITH SOME PAC ON MONITOR. LAB. CALLED AT 0720 AM, K+ 2.8, REPLACING WITH 20 mEq I.V. X 2.
[2022-11-01] MEDS: KCL 20 MEQ/WATER INJ PREMIX 200 ML IV PRN ×2 (07:21→10:35)
[2022-11-01 07:33] LABS: HEMATOCRIT 28.9 % (36-52); HEMOGLOBIN 10.1 g/dL (12.0-18.0); MEAN CORPUSCULAR HEMOGLOBIN 35 pg (27-31); MEAN CORPUSCULAR HGB CONC 35 g/dL (33-37); MEAN CORPUSCULAR VOLUME 100.1 fL (80-94); PLATELET COUNT (AUTO) 101 K/uL (140-450); RED BLOOD CELL COUNT(AUTO) 2.88 MIL/uL (4.20-6.10); RED CELL DISTRIBUTION WIDTH 14.4 % (11.6-13.7); WHITE BLOOD COUNT (AUTO) 10.7 K/uL (4.8-10.8)
[2022-11-01] MEDS: HYDROcodone/APAP 5/325 MG 1 TAB TAB PO PRN ×2 (07:36→16:00)
[2022-11-01] MEDS: VALPROIC ACID 250 MG/5 ML UDC NG SCH ×2 (08:22→21:11)
[2022-11-01] MEDS: FUROSEMIDE 40 MG/4 ML VIAL IVP SCH ×2 (08:39→21:10)
[2022-11-01] MEDS: AMIODARONE 200 MG TAB NG SCH ×2 (08:39→21:10)
[2022-11-01] MEDS: levETIRAcetam 500 MG TAB PO SCH ×2 (08:40→21:12)
[2022-11-01] MEDS: BENZTROPINE 1 MG TAB PO SCH ×2 (08:40→21:14)
[2022-11-01] MEDS: VANCOMYCIN HCL 1.25 GM in DEXTROSE 5% 250 ML IV SCH ×2 (08:41→21:09)
--- NOTE | 2022-11-01 08:45 | NUR ---
DR. ZHOU CAME AND NOTED SpO2 100%, DECREASED FiO2 TO 35% FROM 45%. INFORMED K+ 2.8 THIS MORNING, REPLACING WITH 40 mEq I.V. KCl. NO OTHER ORDERS. FOR TRANSFER OUT TO [facility], CAN BE TRACHEOSTOMY THERE IF NEEDED. MICHAEL MALCOLM [phone]. CALLED UP EARLIER, AND SAID THAT HER AUNT (PT'S. SISTER) IS AWARE OF THE TRANSFER ORDER.
[2022-11-01] MEDS: ENOXAPARIN 40 MG/0.4 ML SYR SUBQ SCH (08:47)
[2022-11-01 08:58] LABS: MAGNESIUM 1.9 mg/dL (1.8-2.4); PHOSPHORUS 3.7 mg/dL (2.5-4.9)
[2022-11-01 09:29] LABS: BASOPHILS % (AUTO) 1.2 % (0.0-2.0); EOSINOPHILS # (AUTO) 0.3 K/uL (0-0.4); EOSINOPHILS % (AUTO) 2.4 % (0.0-4.0); LYMPHOCYTES # (AUTO) 2.1 K/uL (2.0-11.5); LYMPHOCYTES % (AUTO) 19.7 % (20.5-51.1); MONOCYTES # (AUTO) 0.6 K/uL (0.8-1.0); MONOCYTES % (AUTO) 5.3 % (1.7-9.3); NEUTROPHILS # (AUTO) 7.6 K/uL (1.8-7.7); NEUTROPHILS % (AUTO) 71.4 % (42.2-75.2)
[2022-11-01 09:30] LABS: BASOPHILS # (AUTO) 0.3 K/uL (0.00-0.22)
[2022-11-01 09:31] LABS: LYMPHOCYTES % (MANUAL) 21 % (20-46); MONOCYTES % (MANUAL) 9 % (5-12)
[2022-11-01] MEDS: POTASSIUM CHLORIDE 20% 40 MEQ/15 ML UDC GT SCH (10:45)
--- NOTE | 2022-11-01 19:30 | NUR ---
RECEIVED PATIENT AWAKE. ABLE TO NOD TO QUESTIONS ANSWERABLE TO YES OR NO.AFEBRILE.ASYMPTOMATIC OF PAIN AND DISCOMFORT ON VENT SETTIGS ACVC 18,FIO2 35 TV 400 PEEP 5..SUCTIONING OF SECRETIONS SCANT TO MODRATE YELLOWISH CLORED. EVERY 2 HOURS AND PRN.SR ON MONITOR NOECTOPY.ON VITAL AF AT 50 ML/HOUR .SKIN REMAINS INTACT.NOTED WITH GENERALIZES EDEMA ON EXTREMITIES.WILL PROCEED WITH CARE.
--- NOTE | 2022-11-01 19:32 | NUR ---
REPORT GIVEN TO NIGHT MARY PERKINS. PT.INTUBATED, AWAKE, NODS TO QUESTION OF PAIN, OR WHEN INFORMED OF ANY PROCEDURE/TURNING. TUBE FEEDING. NO IVF NOW. FOR TRANSFER TO [facility]. NIECE CALLED, AWARE OF THE TRANSFER REQUESTED BY THE PATIENT'S SISTER TO CALL ICU.
[2022-11-01] MEDS: LORazepam 2 MG/ML VIAL IVP PRN (23:22)
[2022-11-02] VITALS (17 sets, daily range): BP systolic 86–153; BP diastolic 41–104
[2022-11-02] MEDS: MIDODRINE 5 MG TAB PO SCH ×4 (04:54→23:28)
[2022-11-02 06:51] LABS: CARBON DIOXIDE 35.1 mmol/L (21-32); CREATININE 0.7 mg/dL (0.6-1.3)
--- NOTE | 2022-11-02 07:00 | NUR ---
REPORT GIVEN AND ENDORSED TO LEIGH HERNANDEZ.
--- NOTE | 2022-11-02 07:12 | NUR ---
received report from endorsing weight guesser RN for continuity of care, patient lying on bed ;vent setting on AC rate of 18, fio2 35%, tidal volume of 400 and PEEP of 5.tube feeding in place vital AF @ [address] ml[address] catheter in place, yellow urine in color draining to gravity. no signs of acute distress noted at this time will continue to monitor.
[2022-11-02 07:17] LABS: ANION GAP 9.4 (8-16)
[2022-11-02 07:21] LABS: POTASSIUM 2.5 mmol/L (3.5-5.1)
[2022-11-02] MEDS: KCL 20 MEQ/WATER INJ PREMIX 200 ML IV PRN (07:42)
--- NOTE | 2022-11-02 07:48 | NUR ---
RECEIVED ON A CopiunAPE R860 VENTILATOR PLUGGED INTO RED OUTLET TOLERATING WITHOUT ADVERSE REACTIONS NOTED TO AN ENDOTRACHEAL TUBE #8.0 SECURED AT 25cm TEETH/GUM LINE WITH AN ANCHOR FAST CUFF PRESSURE CHECKED NOTED AMBU BAG AT BEDSIDE STABLE EQUAL CHEST RISE ENDOTRACHEAL SUCTION FOR COPIOUS THIN PALE YELLOW SECRETIONS AIRWAY PATENT
--- NOTE | 2022-11-02 08:13 | NUR ---
oral care given, BM noted, changed bed linen and bedside care rendered.
[2022-11-02] MEDS: VALPROIC ACID 250 MG/5 ML UDC NG SCH ×2 (08:50→20:34)
[2022-11-02] MEDS: AMIODARONE 200 MG TAB NG SCH ×2 (08:50→20:33)
[2022-11-02] MEDS: levETIRAcetam 500 MG TAB PO SCH ×2 (08:51→20:35)
[2022-11-02] MEDS: BENZTROPINE 1 MG TAB PO SCH ×2 (08:52→20:34)
[2022-11-02] MEDS: POTASSIUM CHLORIDE 20% 40 MEQ/15 ML UDC GT SCH (08:53)
[2022-11-02] MEDS: ENOXAPARIN 40 MG/0.4 ML SYR SUBQ SCH (08:54)
[2022-11-02] MEDS: ONDANSETRON 4 MG/2 ML VIAL IVP PRN (09:19)
[2022-11-02] MEDS: VANCOMYCIN HCL 1.25 GM in DEXTROSE 5% 250 ML IV SCH ×2 (09:29→20:31)
[2022-11-02] MEDS ORDERED: POTASSIUM CHLORIDE 20% 40 MEQ/15 ML UDC GT SCH (11:15)
[2022-11-02] MEDS ORDERED: DEXMEDETOMIDINE HCL 400 MCG in NACL 0.9% 96 ML IV PRN (11:25)
[2022-11-02] MEDS: PIPERACILLIN/TAZOBACTAM 3.375 GM in DEXTROSE 5% 50 ML IV SCH ×3 (11:49→23:07)
[2022-11-02] MEDS: FUROSEMIDE 40 MG/4 ML VIAL IVP SCH ×2 (12:11→20:32)
[2022-11-02] MEDS: LORazepam 2 MG/ML VIAL IVP PRN (12:48)
--- NOTE | 2022-11-02 13:08 | NUR ---
RESTING WELL NO EVIDENCE FOR RESPIRATORY DISTRESS NOTED GOOD CHEST RISE ENDOTRACHEAL SUCTION FOR MODERATE THIN YELLOW SECRETIONS AIRWAY PATENT SPUTUM CULTURE SPECIMEN OBTAINED FORWARDED TO LAB
[2022-11-02] MEDS: ALBUTEROL SULFATE/IPRATROPIU 3 ML SOL IH SCH ×2 (13:45→19:00)
--- NOTE | 2022-11-02 16:17 | NUR ---
RESTING WELL EQUAL CHEST RISE GOOD AERATION THROUGHOUT BILATERAL LUNG BARTLETT AIRWAY PATENT
--- NOTE | 2022-11-02 18:26 | NUR ---
oral care and bedside care rendered, no signs of acute distress. will continue to monitor.
--- NOTE | 2022-11-02 19:30 | NUR ---
ASSUMED CARE OF THIS PATIENT AND ASSESSMENT DONE AND COMPLETED ,OPEN EYES AND STILL ABLE TO NOD TO ANSWERABLE QUESTIONS.AFEBRILE. SR AND SB ON THE MONITOR.WILL PROCEED WITH PRESENT CARE PLAN.SEEMINGLY FREE OF PAIN AND DISCOMFORT.REMAINS ON VENTILATOR WITH SAME SETTINGS AC/VC 18 YV 400 FIO2 35 AND PEEP 5.REMAINS ON OGT OF VITAL AF AT 50 ML/HOUR .ROMERO IN PLACE AND INTACT DRAINING ADEQUATE AMOUNT OF URINE.SKIN INTACT.
[2022-11-03] VITALS (16 sets, daily range): BP systolic 92–124; BP diastolic 46–68
[2022-11-03] MEDS: LORazepam 2 MG/ML VIAL IVP PRN (00:40)
[2022-11-03] MEDS: ALBUTEROL SULFATE/IPRATROPIU 3 ML SOL IH SCH ×4 (01:00→19:00)
[2022-11-03] MEDS: PIPERACILLIN/TAZOBACTAM 3.375 GM in DEXTROSE 5% 50 ML IV SCH ×4 (05:33→23:38)
[2022-11-03] MEDS: MIDODRINE 5 MG TAB PO SCH ×4 (05:38→23:40)
[2022-11-03 06:10] LABS: BASOPHILS % (AUTO) 0.6 % (0.0-2.0); EOSINOPHILS # (AUTO) 0.1 K/uL (0-0.4); EOSINOPHILS % (AUTO) 1.3 % (0.0-4.0); HEMATOCRIT 22.3 % (36-52); HEMOGLOBIN 7.9 g/dL (12.0-18.0); LYMPHOCYTES # (AUTO) 1.6 K/uL (2.0-11.5); LYMPHOCYTES % (AUTO) 22.6 % (20.5-51.1); MEAN CORPUSCULAR HEMOGLOBIN 35 pg (27-31); MEAN CORPUSCULAR HGB CONC 35 g/dL (33-37); MEAN CORPUSCULAR VOLUME 98.2 fL (80-94); NEUTROPHILS # (AUTO) 4.2 K/uL (1.8-7.7); NEUTROPHILS % (AUTO) 60.5 % (42.2-75.2); PLATELET COUNT (AUTO) 145 K/uL (140-450); RED BLOOD CELL COUNT(AUTO) 2.27 MIL/uL (4.20-6.10); RED CELL DISTRIBUTION WIDTH 14.2 % (11.6-13.7)
[2022-11-03 06:32] LABS: ANION GAP 8.7 (8-16); CARBON DIOXIDE 35.8 mmol/L (21-32); CREATININE 0.8 mg/dL (0.6-1.3)
[2022-11-03 06:34] LABS: PHOSPHORUS 3.3 mg/dL (2.5-4.9)
--- NOTE | 2022-11-03 07:00 | NUR ---
ENDORSED EMANUEL HERNANDEZ.
[2022-11-03 07:01] LABS: POTASSIUM 2.5 mmol/L (3.5-5.1)
--- NOTE | 2022-11-03 07:15 | NUR ---
RECEIVED BEDSIDE REPORT FROM TANNING DRUM OPERATOR GLEN RN. PT AWAKE. ETT TO VENT. AC VC FIO2 25@, VT 400, RR 18, PEEP 5. SR ON MONITOR. NO S/S OF ACUTE RESPIRATORY DISTRESS. PICC LINE TO LT UPPER ARM, RUNNING NS@ 5MLS/H. VITAL, TUBE FEEDING RUNNING @ 50MLS/HR, FWF 150 MLS Q 8HR. ROMERO IN PLACE TO GRAVITY. GENERALIZED WEAKNESS, BEDREST. BED TO LOWEST POSITION, HOB ELEVATED , CALL LIGHT WITH REACH, WILL CONTINUE TO MONITOR.
[2022-11-03] MEDS: KCL 20 MEQ/WATER INJ PREMIX 200 ML IV PRN ×2 (07:36→12:07)
--- NOTE | 2022-11-03 08:00 | NUR ---
NOTIFIED DR CALVILLO. PT POTASSIUM 2.5, PT HAS SCHEDULE POTASSIUM CHLORIDE 20 MEQ G TUBE. ORDERED POTASSIUM CHLORIDE 40 MEQ IV, AND ANOTHER POTASSIUM CHLORIDE 40 MEQ IV IN 4 HR.
[2022-11-03] MEDS: BENZTROPINE 1 MG TAB PO SCH ×2 (08:30→21:15)
[2022-11-03] MEDS: VANCOMYCIN HCL 1.25 GM in DEXTROSE 5% 250 ML IV SCH ×2 (08:30→21:11)
[2022-11-03] MEDS: POTASSIUM CHLORIDE 20% 40 MEQ/15 ML UDC GT SCH (08:31)
[2022-11-03] MEDS: ENOXAPARIN 40 MG/0.4 ML SYR SUBQ SCH (08:32)
[2022-11-03] MEDS: VALPROIC ACID 250 MG/5 ML UDC NG SCH ×2 (08:32→21:12)
[2022-11-03] MEDS: AMIODARONE 200 MG TAB NG SCH ×2 (08:33→21:12)
[2022-11-03] MEDS: levETIRAcetam 500 MG TAB PO SCH ×2 (08:33→21:13)
[2022-11-03] MEDS: FUROSEMIDE 40 MG/4 ML VIAL IVP SCH ×2 (08:34→21:12)
[2022-11-03] MEDS: PANTOPRAZOLE 40 MG TABEC PO SCH (08:34)
--- NOTE | 2022-11-03 13:41 | NUR ---
DR SHAIKH OATES AT BEDSIDE. UPDATED PT INFORMATION.
--- NOTE | 2022-11-03 13:50 | NUR ---
DR REBECA OATES AT BEDSIDE. UPDATED PT INFORMATION.
--- NOTE | 2022-11-03 14:10 | NUR ---
11/03/22 RD FOLLOW UP COMPLETED.PLEASE REFER TO NUTRITION ASSESSMENT UNDER CARE ACTIVITY FOR ESTIMATED NUTRITIONAL NEEDS. 1.RECOMMEND INCREASING VITAL AF 1.2 TO GOAL RATE 60 ML/HR TOLERATED, FWF 150 ML Q8H OR PER MD. AT GOAL RATE OF 60ML/HR, THIS WILL PROVIDE 1440 ML VOLUME, 1728 KCAL, AND 108 GRAMS OF PROTEIN, MEETING 90% OF ESTIMATED KCAL NEEDS AND 100% OF ESTIMATED PROTEIN NEEDS; ADEQUATE. 2. MONITOR GI SYMPTOMS & GASTRIC RESIDUALS. 3. CONSULT RD PRN. 4. RD TO FOLLOW-UP 2-3 DAYS, HIGH RISK. SOLANGE CHAN RD
--- NOTE | 2022-11-03 14:15 | NUR ---
PER DIETITIAN RECOMMENDATION, INCREASING VITAL AF 1.2 TO GOAL RATE 60 ML/HR TOLERATED, FWF 150 ML Q8H OR PER MD.
--- NOTE | 2022-11-03 19:07 | NUR ---
ENDORSED TO HOME WORKER JACQUI RN FOR CONTINUITY OF CARE. ALL QUESTIONS ANSWERED.
--- NOTE | 2022-11-03 19:10 | NUR ---
RECEIVED REPORT FROM DWAIN HERNANDEZ FOR CONTINUITY OF PT'S CARE. PRT IS RECEIVED IN A SIDE LYING POSITION . NO DISTRESS NOTED . HE IS ETT TO VENT WITH SETTING AC/VC 255,TV 400 RATE 18, AND PEEP 5 HIS LUNG SOUNDS ARE WITH RHONCHI. HE HAS AN OGT IN PLACE RECEIVING VITAL AF AT 60CC/HR AND FREE WATER [id number] HR. HE'S TOLERATING IT WELL WITH RESIDUAL 10CC. PT FOLLOWS SIMPLE COMMANDS. HE OPENED HIS EYES ON COMMAND HE HAS A ROMERO CATH AND PASSED 1300 CC TODAY PER REPORT. AND HE HAD 3 BMS TODAY. HIS PLAN IS TO BE PLACED IN A L TECH SOON POSSIBLE.
[2022-11-04] VITALS (21 sets, daily range): BP systolic 101–129; BP diastolic 55–71
[2022-11-04] MEDS: PIPERACILLIN/TAZOBACTAM 3.375 GM in DEXTROSE 5% 50 ML IV SCH ×4 (05:45→23:41)
[2022-11-04] MEDS: MIDODRINE 5 MG TAB PO SCH ×4 (05:46→23:41)
[2022-11-04 05:49] LABS: BASOPHILS # (AUTO) 0.1 K/uL (0.00-0.22); BASOPHILS % (AUTO) 0.9 % (0.0-2.0); EOSINOPHILS # (AUTO) 0.1 K/uL (0-0.4); HEMOGLOBIN 7.9 g/dL (12.0-18.0); LYMPHOCYTES # (AUTO) 1.7 K/uL (2.0-11.5); LYMPHOCYTES % (AUTO) 19.8 % (20.5-51.1); MEAN CORPUSCULAR HEMOGLOBIN 34 pg (27-31); MEAN CORPUSCULAR HGB CONC 34 g/dL (33-37); MEAN CORPUSCULAR VOLUME 98.9 fL (80-94); MONOCYTES # (AUTO) 1.4 K/uL (0.8-1.0); MONOCYTES % (AUTO) 15.4 % (1.7-9.3); NEUTROPHILS # (AUTO) 5.5 K/uL (1.8-7.7); NEUTROPHILS % (AUTO) 62.9 % (42.2-75.2); PLATELET COUNT (AUTO) 225 K/uL (140-450); RED BLOOD CELL COUNT(AUTO) 2.32 MIL/uL (4.20-6.10); RED CELL DISTRIBUTION WIDTH 14.3 % (11.6-13.7); WHITE BLOOD COUNT (AUTO) 8.8 K/uL (4.8-10.8)
[2022-11-04 06:15] LABS: ANION GAP 8.4 (8-16); CARBON DIOXIDE 36.4 mmol/L (21-32); CREATININE 0.7 mg/dL (0.6-1.3)
[2022-11-04 06:18] LABS: POTASSIUM 2.8 mmol/L (3.5-5.1)
[2022-11-04 06:31] LABS: MAGNESIUM 1.9 mg/dL (1.8-2.4); PHOSPHORUS 2.9 mg/dL (2.5-4.9)
[2022-11-04] MEDS: ALBUTEROL SULFATE/IPRATROPIU 3 ML SOL IH SCH ×3 (07:33→19:01)
--- NOTE | 2022-11-04 08:00 | NUR ---
RECEIVED PT ASLEEP, EASILY AROUSABLE, NOT IN ANY FORM OF DISTRESS. ASSESSMENT DONE. ABLE TO ANSWER SIMPLE QUESTIONS BY SHAKING/NODDING HEAD, ABLE TO FOLLOW COMMANDS. TOLERATING OGT FEEDINT AND CURRENT VENRT SETTING, O2 SAT 100%. RECTAL TUBE LEAKING, LARGE AMOUNT OF WATERY BROWNISH STOOL LEAKED. GOOED PERICARE RENDERED, ORAL CARE DONE. REPOSITONED TO SIDE, SUPPORTED WITH PILLOWS. KEPT CLEAN AND DRY. ASPIRATION PRECAUTION MAINTAINED. SR. AFEBRILE. CONT TO MONITOR.
[2022-11-04] MEDS: VALPROIC ACID 250 MG/5 ML UDC NG SCH ×2 (08:47→21:09)
[2022-11-04] MEDS: FUROSEMIDE 40 MG/4 ML VIAL IVP SCH ×2 (08:48→21:08)
[2022-11-04] MEDS: levETIRAcetam 500 MG TAB PO SCH ×2 (08:48→21:10)
[2022-11-04] MEDS: PANTOPRAZOLE 40 MG TABEC PO SCH (08:49)
[2022-11-04] MEDS: AMIODARONE 200 MG TAB NG SCH ×2 (08:49→21:07)
[2022-11-04] MEDS: BENZTROPINE 1 MG TAB PO SCH ×2 (08:50→21:07)
[2022-11-04] MEDS: VANCOMYCIN HCL 1.25 GM in DEXTROSE 5% 250 ML IV SCH ×2 (08:50→21:12)
[2022-11-04] MEDS: POTASSIUM CHLORIDE 20% 40 MEQ/15 ML UDC GT SCH (08:51)
[2022-11-04] MEDS: ENOXAPARIN 40 MG/0.4 ML SYR SUBQ SCH (08:54)
[2022-11-04] MEDS ORDERED: MAG SULF 2000 MG/WATER PREMIX 50 ML IV SCH (15:15)
--- NOTE | 2022-11-04 19:20 | NUR ---
RECEIVED PATIENT ON BED AWAKE, ALERT, NODS HEAD IN RESPONSE TO YES ANSWER; ORALLY INTUBATED AND VENTILATED AT 25% FIO2; SO2 99%. CARDIACSCOPE SHOWS ON SINUS RHYTHM HR 70/MIN NO ARRHYTHMIAS SEEN. IVF IN PROGRESS NORMAL SALINE TO KVO. VIA PICC LINE TO LEFT UPPER ARM; PATENT AND INTACT. ABDOMEN IS SOFT NON TENDER; ACTIVE BOWEL SOUNDS. ON CONTINUOUS TUBE FEEDING VITAL AF AT 60 ML/HR VIA OGT; TOLERATED WITH MINIMAL RESIDUAL. WITH RECTAL TUBE IN PLACE TO GRAVITY DRAINAGE BAG DRAINING TO BROWN YELLOW LIQUID STOOL; INTACT. WITH ROMERO CATH IN PLACE TO DRAINAGE BAG, WITH CLEAR YELLOW URINE OUTPUT; PATENT AND INTACT.
--- NOTE | 2022-11-04 20:17 | NUR ---
PT SLEEPING COMFORTABLY, VS STABLE, AFEBRILE. REPORT GIVEN TO INCOMING RN SANKET. GEN CONDITION CRITICAL.
--- NOTE | 2022-11-04 22:25 | NUR ---
ENDORSED TO MARY PETERSEN FOR CONTINUITY OF CARE.
--- NOTE | 2022-11-04 22:33 | NUR ---
Assumed pt care report received from Mansi HERNANDEZ
--- NOTE | 2022-11-04 23:40 | NUR ---
Met pt awake alert, follows command moves all extremities,nods appropriately to answer questions, calm with care no sign of distress vitals signs stable, afebrile denies pain, oral care done, inline ETT suction tolerating ventilator support well, OGT with tube feeding placement checked and verified by auscultation residual <30cc. Donovan to gravity adequate urine output and rectal tube full with brown stool. Pt repositioned for comfort, will continue to monitor and treat as per care plan.
[2022-11-05] VITALS (26 sets, daily range): BP systolic 99–132; BP diastolic 43–74
[2022-11-05] MEDS: ALBUTEROL SULFATE/IPRATROPIU 3 ML SOL IH SCH ×4 (01:07→19:00)
[2022-11-05] MEDS: PIPERACILLIN/TAZOBACTAM 3.375 GM in DEXTROSE 5% 50 ML IV SCH ×3 (05:17→17:38)
[2022-11-05] MEDS: MIDODRINE 5 MG TAB PO SCH ×3 (05:17→17:39)
[2022-11-05 05:53] LABS: BASOPHILS % (AUTO) 0.3 % (0.0-2.0); EOSINOPHILS # (AUTO) 0.1 K/uL (0-0.4); EOSINOPHILS % (AUTO) 1.1 % (0.0-4.0); HEMATOCRIT 22.3 % (36-52); HEMOGLOBIN 7.8 g/dL (12.0-18.0); LYMPHOCYTES # (AUTO) 2.1 K/uL (2.0-11.5); LYMPHOCYTES % (AUTO) 26.7 % (20.5-51.1); MEAN CORPUSCULAR HEMOGLOBIN 35 pg (27-31); MEAN CORPUSCULAR HGB CONC 35 g/dL (33-37); MONOCYTES # (AUTO) 1.2 K/uL (0.8-1.0); MONOCYTES % (AUTO) 14.9 % (1.7-9.3); NEUTROPHILS # (AUTO) 4.5 K/uL (1.8-7.7); PLATELET COUNT (AUTO) 269 K/uL (140-450); RED BLOOD CELL COUNT(AUTO) 2.25 MIL/uL (4.20-6.10); RED CELL DISTRIBUTION WIDTH 14.1 % (11.6-13.7); WHITE BLOOD COUNT (AUTO) 7.9 K/uL (4.8-10.8)
[2022-11-05 06:31] LABS: MAGNESIUM 2.4 mg/dL (1.8-2.4); PHOSPHORUS 3.7 mg/dL (2.5-4.9)
[2022-11-05 06:47] LABS: ANION GAP 8.2 (8-16); CARBON DIOXIDE 35.9 mmol/L (21-32); CREATININE 0.8 mg/dL (0.6-1.3); POTASSIUM 3.1 mmol/L (3.5-5.1)
--- NOTE | 2022-11-05 07:32 | NUR ---
Change of shift SBAR given to XAVIER HERNANDEZ for continuity of pt's care as at this time vitals signs stable no changes iin pt's condition and care plan
--- NOTE | 2022-11-05 07:33 | NUR ---
received report from cnc machinist 2nd shift MARY Brooks for continuity of care, patient lying on bed , vent settings AC rate of 18, tidal volume 400, Fio2 23 and Peep of 5.on tube feeding Vital @ 60 cc/hr. Donovan catheter in place , rectal tube in place. no signs oc acute distress noted at this time, will continue to monitor.
[2022-11-05] MEDS: POTASSIUM CHLORIDE 20% 40 MEQ/15 ML UDC GT SCH (08:23)
[2022-11-05] MEDS: PANTOPRAZOLE 40 MG TABEC PO SCH (08:24)
[2022-11-05] MEDS: levETIRAcetam 500 MG TAB PO SCH ×2 (08:28→21:02)
[2022-11-05] MEDS: AMIODARONE 200 MG TAB NG SCH ×2 (08:29→21:06)
[2022-11-05] MEDS: VALPROIC ACID 250 MG/5 ML UDC NG SCH ×2 (08:30→21:06)
[2022-11-05] MEDS: FUROSEMIDE 40 MG/4 ML VIAL IVP SCH ×2 (08:31→21:07)
[2022-11-05] MEDS: BENZTROPINE 1 MG TAB PO SCH ×2 (08:36→21:08)
[2022-11-05] MEDS: VANCOMYCIN HCL 1.25 GM in DEXTROSE 5% 250 ML IV SCH ×2 (08:55→21:06)
[2022-11-05] MEDS: ENOXAPARIN 40 MG/0.4 ML SYR SUBQ SCH (08:59)
--- NOTE | 2022-11-05 09:15 | NUR ---
Dr. Herron is at the bedside assessing the patient, notify him about the patient Potassium level.
[2022-11-05] MEDS: POTASSIUM CHLORIDE 20% 40 MEQ/15 ML UDC GT PRN (09:19)
--- NOTE | 2022-11-05 10:00 | NUR ---
oral care and bedside care rendered.
[2022-11-05] MEDS: ONDANSETRON 4 MG/2 ML VIAL IVP PRN ×2 (10:27→18:38)
[2022-11-05] MEDS: LORazepam 2 MG/ML VIAL IVP PRN ×2 (13:31→21:01)
--- NOTE | 2022-11-05 17:35 | NUR ---
bed linen changed, and provided partial bed bath.
[2022-11-05] MEDS: MORPHINE SULFATE 2 MG/ML SYR IVP PRN (18:38)
--- NOTE | 2022-11-05 19:45 | NUR ---
PT ALERT AND ORIENTED X0. ETT VENT SETTINGS FI02 25% VT 400 RATE 18 PEEP 5. DIET OGT VITAL AF. FEEDING GOAL 60 ML/HR 150ML Q8HR FREE FLUSH. ROMERO CATHETER INTACT AND FLOWING WELL. SR TO BEDSIDE MONITOR. YVAN PICC LINE DOUBLE LUMEN. PT SEEMS COMFORTABLE AT THIS TIME. FLACC 0.
--- NOTE | 2022-11-05 20:20 | NUR ---
VANCO TROUGH 18.6. CALLED AFTER HOURS PHARMACY TO CONFIRM IF IT IS STILL OKAY TO GIVE 2100 VANCOMYCIN IV INFUSION. PHARMACIST STATED IT IS OKAY TO GIVE BECAUSE LAB VALUE IS FROM THE 11-04-22 AND THE PHARMACIST HERE SHOULD HAVE ALREADY LOOKED AT IT. 2100 VANCOMYCIN IV BAG IN CASSETTE PROVIDED BY PHARMACIST.
--- NOTE | 2022-11-05 22:00 | NUR ---
PM MEDS GIVEN. FLACC 0.
[2022-11-06] VITALS (20 sets, daily range): BP systolic 88–119; BP diastolic 53–74
[2022-11-06] MEDS: PIPERACILLIN/TAZOBACTAM 3.375 GM in DEXTROSE 5% 50 ML IV SCH ×5 (00:45→23:34)
[2022-11-06] MEDS: MIDODRINE 5 MG TAB PO SCH ×5 (00:45→23:41)
[2022-11-06] MEDS: ALBUTEROL SULFATE/IPRATROPIU 3 ML SOL IH SCH ×4 (01:40→19:48)
--- NOTE | 2022-11-06 02:30 | NUR ---
PT RESTING. VITALS STABLE WITHIN PT'S PERSONAL RANGE.
--- NOTE | 2022-11-06 04:36 | NUR ---
AM CARE AND ORAL CARE DONE.
[2022-11-06 06:18] LABS: BASOPHILS % (AUTO) 0.6 % (0.0-2.0); EOSINOPHILS # (AUTO) 0.1 K/uL (0-0.4); HEMATOCRIT 23.1 % (36-52); HEMOGLOBIN 7.9 g/dL (12.0-18.0); LYMPHOCYTES % (AUTO) 25.5 % (20.5-51.1); MEAN CORPUSCULAR HEMOGLOBIN 35 pg (27-31); MEAN CORPUSCULAR HGB CONC 34 g/dL (33-37); MONOCYTES # (AUTO) 1.3 K/uL (0.8-1.0); MONOCYTES % (AUTO) 16.3 % (1.7-9.3); NEUTROPHILS # (AUTO) 4.4 K/uL (1.8-7.7); NEUTROPHILS % (AUTO) 56.6 % (42.2-75.2); PLATELET COUNT (AUTO) 291 K/uL (140-450); RED BLOOD CELL COUNT(AUTO) 2.29 MIL/uL (4.20-6.10); RED CELL DISTRIBUTION WIDTH 14.3 % (11.6-13.7); WHITE BLOOD COUNT (AUTO) 7.7 K/uL (4.8-10.8)
--- NOTE | 2022-11-06 07:00 | NUR ---
RECEIVED PT ON AC 400,16,+5,28%. VENT PLUGGED INTO RED OUTLET, WHEELS ARE LOCKED. AMBUBAG AT BEDSIDE. ALARMS ARE SET AND AUDIBLE. WILL CONTINUE TO MONITOR. Addendum: 11/06/22 at 1231 by Ana Jean RT RESPIRATORY RATE IS 18 AND FIO2 IS 21%.
--- NOTE | 2022-11-06 07:16 | NUR ---
REPORT GIVEN TO ACOSTA COLES.
[2022-11-06 08:08] LABS: ANION GAP 9.6 (8-16); CARBON DIOXIDE 35.3 mmol/L (21-32); CREATININE 0.8 mg/dL (0.6-1.3)
[2022-11-06 08:12] LABS: MAGNESIUM 2.1 mg/dL (1.8-2.4)
[2022-11-06 08:24] LABS: POTASSIUM 2.9 mmol/L (3.5-5.1)
[2022-11-06] MEDS: KCL 20 MEQ/WATER INJ PREMIX 200 ML IV PRN (08:49)
[2022-11-06] MEDS: PANTOPRAZOLE 40 MG TABEC PO SCH (08:52)
[2022-11-06] MEDS: levETIRAcetam 500 MG TAB PO SCH ×2 (08:52→21:04)
[2022-11-06] MEDS: VALPROIC ACID 250 MG/5 ML UDC NG SCH ×2 (08:53→21:03)
[2022-11-06] MEDS: AMIODARONE 200 MG TAB NG SCH ×2 (08:56→21:03)
[2022-11-06] MEDS: VANCOMYCIN HCL 1.25 GM in DEXTROSE 5% 250 ML IV SCH ×2 (08:57→21:02)
[2022-11-06] MEDS: BENZTROPINE 1 MG TAB PO SCH ×2 (08:57→21:07)
[2022-11-06] MEDS: ENOXAPARIN 40 MG/0.4 ML SYR SUBQ SCH (08:58)
[2022-11-06] MEDS: POTASSIUM CHLORIDE 20% 40 MEQ/15 ML UDC GT SCH (09:00)
[2022-11-06] MEDS: FUROSEMIDE 40 MG/4 ML VIAL IVP SCH ×2 (09:00→21:02)
[2022-11-06] MEDS ORDERED: FUROSEMIDE 20 MG/2 ML VIAL IVP ONE (09:03)
--- NOTE | 2022-11-06 12:00 | NUR ---
CPAP TRIAL 09/23 PT LASTED 90 MINS. VOLUMES RANGED FROM 420-550. BLOOD PRESSURE, HEART RATE AND RESPIRATORY RATE ALL WITH IN NORMAL RANGE. SWITCHED TO PREVIOUS VENT SETTING, SO PT COULD REST. WILL CONTINUE TO MONITOR.
[2022-11-06] MEDS ORDERED: POTASSIUM CHLORIDE 20% 40 MEQ/15 ML UDC GT SCH (16:00)
--- NOTE | 2022-11-06 16:28 | NUR ---
11/06/22 RD FOLLOW UP COMPLETED PLEASE REFER TO NUTRITION ASSESSMENT UNDER CARE ACTIVITY FOR ESTIMATED NUTRITIONAL NEEDS. 1.RECOMMEND INCREASING VITAL AF 1.2 TO GOAL RATE 65 ML/HR TOLERATED, FWF 150 ML Q4H OR PER MD. -AT GOAL RATE OF 65 ML/HR, THIS WILL PROVIDE 1560 ML VOLUME, 1872 KCAL, 117 GM OF PROTEIN, AND 2165 ML FREE WATER, MEETING 98% OF ESTIMATED KCAL NEEDS AND 100% OF ESTIMATED PROTEIN NEEDS; ADEQUATE. 2. MONITOR GI SYMPTOMS & GASTRIC RESIDUALS. 3. CONSULT RD PRN. 4. RD TO FOLLOW-UP 3-5 DAYS, MODERATE RISK REVIEWED BY MEGHAN CHAVIS RD
[2022-11-06] MEDS: VANCOMYCIN HCL 25 MG/ML SOLN PO SCH ×2 (17:47→23:38)
[2022-11-06] MEDS ORDERED: VANCOMYCIN 500 MG VIAL PO SCH (18:00)
--- NOTE | 2022-11-06 19:20 | NUR ---
RECEIVED REPORT FROM SANKET HERNANDEZ FOR CONTINUITY OF THIS PT'S CARE. PT RECEIVED IN ISOLATION ROOM SMELLING HEAVILY OF C-DIFF. PT HAS A RECTAL TUBE IN PLACE . THE FLEX I SEAL WAS IRRIGATED TO ALLOW FLOW. PT HAS 2 BLUE BLANKETS ON HIM AND HIS TEMPERATURE IS 101.4. TYLENOL 650 MG GIVEN AND ICE PAKS APPLIED.THE BLANKETS WERE REMOVED. PT REMAINS TRACHED TO VENT WITH SETTING AC/VC 21%FIO2, TV 400, RATE 18, AND PEEP5. HE'S TOLERATING THE VENT SETTING WELL HE HAS A OGT IN PLACE WITH ONLY 10 CC RESIDUAL . HE HAS VITAL AF AT 50 CC'/HOUR AND FREE WATER FLUSH AT 50 CCQ8 HOUR. HE HAS A ROMERO CATH DRAINING QUANTITY SUFFICIENT AMT OF CLEAR YELLOW URINE.
[2022-11-06] MEDS: ACETAMINOPHEN 325 MG TAB PO PRN (19:47)
[2022-11-07] VITALS (31 sets, daily range): BP systolic 92–127; BP diastolic 52–76
--- NOTE | 2022-11-07 | NUR ---
PT'EMPERATURE HAS REMAINED WNL SINCE 2200PM. HE'S SLEEPING NOW AND HIS BLOOD PRESSURE HSN'T DROPPED BELOW 90 SINCE THE FIRST LOW READING AT 1999.
[2022-11-07] MEDS: ALBUTEROL SULFATE/IPRATROPIU 3 ML SOL IH SCH ×4 (00:27→23:55)
[2022-11-07] MEDS: VANCOMYCIN HCL 25 MG/ML SOLN PO SCH ×4 (05:23→23:26)
[2022-11-07 05:34] LABS: BASOPHILS # (AUTO) 0.1 K/uL (0.00-0.22); BASOPHILS % (AUTO) 1.5 % (0.0-2.0); EOSINOPHILS # (AUTO) 0.1 K/uL (0-0.4); EOSINOPHILS % (AUTO) 1.3 % (0.0-4.0); HEMOGLOBIN 8.6 g/dL (12.0-18.0); LYMPHOCYTES # (AUTO) 2.4 K/uL (2.0-11.5); LYMPHOCYTES % (AUTO) 25.8 % (20.5-51.1); MEAN CORPUSCULAR HEMOGLOBIN 34 pg (27-31); MEAN CORPUSCULAR HGB CONC 35 g/dL (33-37); MEAN CORPUSCULAR VOLUME 99.4 fL (80-94); MONOCYTES # (AUTO) 1.3 K/uL (0.8-1.0); MONOCYTES % (AUTO) 14.8 % (1.7-9.3); NEUTROPHILS # (AUTO) 5.1 K/uL (1.8-7.7); NEUTROPHILS % (AUTO) 56.6 % (42.2-75.2); PLATELET COUNT (AUTO) 365 K/uL (140-450); RED BLOOD CELL COUNT(AUTO) 2.51 MIL/uL (4.20-6.10); RED CELL DISTRIBUTION WIDTH 14.2 % (11.6-13.7); WHITE BLOOD COUNT (AUTO) 9.1 K/uL (4.8-10.8)
[2022-11-07] MEDS: MIDODRINE 5 MG TAB PO SCH ×4 (05:39→23:27)
[2022-11-07] MEDS ORDERED: MIDODRINE 5 MG TAB PO SCH (05:45)
[2022-11-07 06:34] LABS: ANION GAP 8.3 (8-16); CARBON DIOXIDE 35.7 mmol/L (21-32)
[2022-11-07 06:44] LABS: MAGNESIUM 2.4 mg/dL (1.8-2.4); PHOSPHORUS 3.8 mg/dL (2.5-4.9)
[2022-11-07] MEDS: PIPERACILLIN/TAZOBACTAM 3.375 GM in DEXTROSE 5% 50 ML IV SCH ×4 (07:00→23:25)
[2022-11-07] MEDS: POTASSIUM CHLORIDE 20% 40 MEQ/15 ML UDC GT SCH (09:08)
[2022-11-07] MEDS: AMIODARONE 200 MG TAB NG SCH ×3 (09:08→20:43)
[2022-11-07] MEDS: FUROSEMIDE 40 MG/4 ML VIAL IVP SCH ×2 (09:08→20:32)
[2022-11-07] MEDS: levETIRAcetam 500 MG TAB PO SCH ×2 (09:09→20:35)
[2022-11-07] MEDS: VALPROIC ACID 250 MG/5 ML UDC NG SCH ×2 (09:09→20:33)
[2022-11-07] MEDS: BENZTROPINE 1 MG TAB PO SCH ×2 (09:09→20:34)
[2022-11-07] MEDS: PANTOPRAZOLE 40 MG TABEC PO SCH (09:09)
[2022-11-07] MEDS: ENOXAPARIN 40 MG/0.4 ML SYR SUBQ SCH (09:23)
--- NOTE | 2022-11-07 19:30 | NUR ---
RECEIVED PATIENT AND ASSESSMENT DONE AND COMPLETED.AWAKE ,OPEN EYES BUT DOES NOT FOLLOW COMMANDS SR ON MONITOR,NO ECTOPY .AFEBRILE..ON VENTILATOR WITH NO CHANGES ON SETTINGS.LUNG SOUNDS WITH RHONCHI ON BILATERAL LUNG BARTLETT.ABDOMEN ROUND,SOFT AND NON TENDER WITH POSITIVE BS X4 QUADS.PULSES PRENT AND PALPABLE.WITH VITAL AF AT 30 ML/HR AND FEEDING TOLERATED WELL.NO VOMITING AND DIARRHEA NOTED.ROMERO IN PLACE AND DRAINING ADEQUATE AMOUNT OF URINE OUTPUT.SKIN IS INTACT .WILL CONTINUE TO PROCEED WITH CARE.
[2022-11-08] VITALS (30 sets, daily range): BP systolic 93–128; BP diastolic 58–78
[2022-11-08] MEDS ORDERED: ALBUTEROL SULFATE/IPRATROPIU 3 ML SOL IH ONE (00:09)
[2022-11-08] MEDS: ALBUTEROL SULFATE/IPRATROPIU 3 ML SOL IH SCH ×3 (00:12→07:41)
[2022-11-08 05:53] LABS: BASOPHILS % (AUTO) 0.5 % (0.0-2.0); EOSINOPHILS # (AUTO) 0.1 K/uL (0-0.4); HEMATOCRIT 25.8 % (36-52); HEMOGLOBIN 8.8 g/dL (12.0-18.0); LYMPHOCYTES # (AUTO) 2.4 K/uL (2.0-11.5); LYMPHOCYTES % (AUTO) 25.8 % (20.5-51.1); MEAN CORPUSCULAR HEMOGLOBIN 35 pg (27-31); MEAN CORPUSCULAR HGB CONC 34 g/dL (33-37); MEAN CORPUSCULAR VOLUME 100.9 fL (80-94); MONOCYTES # (AUTO) 1.5 K/uL (0.8-1.0); MONOCYTES % (AUTO) 16.8 % (1.7-9.3); NEUTROPHILS # (AUTO) 5.1 K/uL (1.8-7.7); NEUTROPHILS % (AUTO) 55.9 % (42.2-75.2); PLATELET COUNT (AUTO) 437 K/uL (140-450); RED BLOOD CELL COUNT(AUTO) 2.56 MIL/uL (4.20-6.10); RED CELL DISTRIBUTION WIDTH 14.5 % (11.6-13.7); WHITE BLOOD COUNT (AUTO) 9.2 K/uL (4.8-10.8)
[2022-11-08 06:07] LABS: MAGNESIUM 2.1 mg/dL (1.8-2.4); PHOSPHORUS 3.6 mg/dL (2.5-4.9)
[2022-11-08] MEDS: PIPERACILLIN/TAZOBACTAM 3.375 GM in DEXTROSE 5% 50 ML IV SCH ×3 (06:07→18:40)
[2022-11-08] MEDS: MIDODRINE 5 MG TAB PO SCH ×3 (06:08→18:40)
[2022-11-08] MEDS: VANCOMYCIN HCL 25 MG/ML SOLN PO SCH ×3 (06:09→18:40)
[2022-11-08 06:19] LABS: ANION GAP 9.3 (8-16); CARBON DIOXIDE 35.2 mmol/L (21-32); CREATININE 0.9 mg/dL (0.6-1.3); POTASSIUM 3.5 mmol/L (3.5-5.1)
--- NOTE | 2022-11-08 07:00 | NUR ---
ENDORSED TO DAY SHIFT RN RUMA FOR CONTINUITY OF CARE.
--- NOTE | 2022-11-08 07:15 | NUR ---
RECEIVED PATIENT FROM NIGHT MARY Olmos PT.ORALLY INTUBATED SIZE 8, AC/VC f18, 400 MLS., +5, 21%, OGT TUBE FEEDING AF 60 MLS/HR, FREE WATER FLUSH, FLEXISEAL INCONTINENCE MANAGEMENT, LEAKING. NSR ON MONITOR. HR 70s. QT INTERVAL IS ABOUT 0.40 SECONDS, AMIODARONE TAB WAS HELD BY NIGHT RN. LEFT UPPER PICC LINE. PT. NODS TO CONVERSATION. NOT RESTRAINED. COOPERATIVE BUT WITH HAND/FINGER CONTRACTURES.
[2022-11-08] MEDS: ALBUTEROL 0.083% 2.5 MG/3 ML NEBU INH SCH ×2 (07:33→14:42)
[2022-11-08] MEDS: POTASSIUM CHLORIDE 20% 40 MEQ/15 ML UDC GT SCH (09:11)
[2022-11-08] MEDS: VANCOMYCIN 750 MG in DEXTROSE 5% 250 ML IV SCH ×2 (09:13→20:56)
[2022-11-08] MEDS: FUROSEMIDE 40 MG/4 ML VIAL IVP SCH ×2 (09:13→20:57)
[2022-11-08] MEDS: VALPROIC ACID 250 MG/5 ML UDC NG SCH ×2 (09:14→20:57)
[2022-11-08] MEDS: BENZTROPINE 1 MG TAB PO SCH ×2 (09:15→20:59)
[2022-11-08] MEDS: levETIRAcetam 500 MG TAB PO SCH ×2 (09:15→20:59)
[2022-11-08] MEDS: PANTOPRAZOLE 40 MG TABEC PO SCH (09:16)
[2022-11-08] MEDS: ENOXAPARIN 40 MG/0.4 ML SYR SUBQ SCH (09:20)
[2022-11-08] MEDS: AMIODARONE 200 MG TAB NG SCH (09:27)
[2022-11-08] MEDS: ACETAMINOPHEN 325 MG TAB PO PRN (09:34)
--- NOTE | 2022-11-08 11:26 | NUR ---
AT 1041 PT WAS PLACED ON CPAP AT THIS TIME. PT VITALS WERE IN NORMAL LIMITS, HR 80, 98%. PT WAS IN NO SIGNS OF RESP DISTRESS. RN WAS NOTIFIED.
--- NOTE | 2022-11-08 14:40 | NUR ---
WEANING CPAP/PS PT.WEANED FROM 1040 HRS. TO 1440 HRS. CPAP/PS 15/5 FOR 4 HOURS.
--- NOTE | 2022-11-08 15:00 | NUR ---
TRACHEOSTOMY/PEG, THEN TRANSFER TO [facility] DR. FREDY RAMIREZ CAME AND SAID TO GET TRACHE AND PERCUTANEOUS ESOPHAGOGASTROSCOPY BY LORENA JOSEPH BEFORE TRANSFERRING TO [facility], SINCE THE PATIENT WAS SECOND TIME ON VENTILATOR. WILL CALL SISTER FOR CONSENT.
[2022-11-08] MEDS ORDERED: POTASSIUM CHLORIDE 20% 40 MEQ/15 ML UDC GT SCH (15:05)
[2022-11-08] MEDS ORDERED: POTASSIUM CHLORIDE 20% 40 MEQ/15 ML UDC PO SCH (15:05)
--- NOTE | 2022-11-08 17:36 | NUR ---
[facility] 90-DAY BEDHOLD ROSIO APARICIO OF THE ABOVE FACILITY CALLED UP AND ASKED ABOUT AN UPDATE ON THE PATIENT SINCE THE FAMILY HAS 'ASKED FOR A 90-DAY BEDHOLD (FROM THE TIME OF TRANSFER TO [place]). INFORMED THAT THE PATIENT NEEDS TO BE TRACHE'D AND PEG FIRST AND THEN FOR TRANSFER TO [facility]. HE SAID THAT THEY DO NOT ACCEPT PATIENT ON TRACHE AND PEG OR ROMERO CATHETER.
--- NOTE | 2022-11-08 19:34 | NUR ---
PT. HANDED OVER TO NIGHT MARY PERKINS. PT.HAD CPAP/PS OVER 4 HRS. FOR TRACHE AND PEG WITH CONSENT, NO SCHEDULE YET. MESSAGED LORENA JOSEPH, THAT SISTER CONSENTED TO TRACHE AND PEG. THEN FOR TRANSFER TO [facility]. AC/VC NOW 21%, RATE 10, +5, 400 MLS. TV. TUBE FEEDING. CLEANED STOOL TWICE, FLEXISEAL LEAKS. FLEXISEAL BALLOON CHECKED, SINCE IT IS LEAKING, BUT THE BALLOON WAS ADEQUATE AT 45 MLS. STOPPED LEAKING WHEN THE PT. WAS TURNED ALL THE WAY TO THE SIDE. CHG BATH DONE, CHANGED GOWN, ORAL CARE DONE. PT. DROOLS. PICC LINE DRESSING FOR CHANGING. PT. NODS TO QUESTIONS LIKE SUCTIONING, FOLLOWS TO COMMAND WHEN ASKED TO OPEN MOUTH FOR MOUTH CARE.
--- NOTE | 2022-11-08 19:45 | NUR ---
ASSUMED CARE OF THIS PATIENT AND ASSESSMENT DONE AND COMPLETED .AWAKE,ABLE RESPOND TO ANSWERABLE QUESTIONS AT TIME.S.AFEBRILE .IN SEEMINGLY COMFORTABLE SITUATION ,FREE OF PAIN AND DISCOMFORT..SR ON THE MONITOR WITH HR 70 .VENTILATOR SETTING ACVC10 FIO2 21% PEEP 5TV 400.PATENT HAS A LOT OF SECRETIONS ORALLY AND ETT.SUCTIONING RENDRERED EVERY 2 HOURS AND PRN WITH VITAL AF AT 60ML/HR VIA OGT .WITH WATER FLUSH AT 150 ML/HOUR EVERY [address]UBE IN PL[address] AND DRAINING LIQUID STOOL .SKIN REMAINS INTACT AND POSITIONIG DONE.WILL CONTINUE TO PROCEED WITH CARE.
[2022-11-09] VITALS (30 sets, daily range): BP systolic 96–128; BP diastolic 51–76
[2022-11-09] MEDS: PIPERACILLIN/TAZOBACTAM 3.375 GM in DEXTROSE 5% 50 ML IV SCH ×5 (00:28→23:39)
[2022-11-09] MEDS: VANCOMYCIN HCL 25 MG/ML SOLN PO SCH ×5 (00:29→23:40)
[2022-11-09] MEDS: MIDODRINE 5 MG TAB PO SCH ×5 (00:29→23:40)
[2022-11-09] MEDS: ALBUTEROL 0.083% 2.5 MG/3 ML NEBU INH SCH ×4 (01:00→20:08)
[2022-11-09 05:40] LABS: BASOPHILS % (AUTO) 0.6 % (0.0-2.0); EOSINOPHILS # (AUTO) 0.1 K/uL (0-0.4); EOSINOPHILS % (AUTO) 0.9 % (0.0-4.0); HEMATOCRIT 25.7 % (36-52); HEMOGLOBIN 8.7 g/dL (12.0-18.0); LYMPHOCYTES # (AUTO) 2.2 K/uL (2.0-11.5); LYMPHOCYTES % (AUTO) 26.2 % (20.5-51.1); MEAN CORPUSCULAR HEMOGLOBIN 34 pg (27-31); MEAN CORPUSCULAR HGB CONC 34 g/dL (33-37); MEAN CORPUSCULAR VOLUME 101.4 fL (80-94); MONOCYTES # (AUTO) 1.2 K/uL (0.8-1.0); MONOCYTES % (AUTO) 14.7 % (1.7-9.3); NEUTROPHILS # (AUTO) 4.8 K/uL (1.8-7.7); NEUTROPHILS % (AUTO) 57.6 % (42.2-75.2); PLATELET COUNT (AUTO) 471 K/uL (140-450); RED BLOOD CELL COUNT(AUTO) 2.54 MIL/uL (4.20-6.10); RED CELL DISTRIBUTION WIDTH 14.7 % (11.6-13.7); WHITE BLOOD COUNT (AUTO) 8.2 K/uL (4.8-10.8)
[2022-11-09 06:27] LABS: ANION GAP 12.3 (8-16); CARBON DIOXIDE 31.5 mmol/L (21-32); CREATININE 0.9 mg/dL (0.6-1.3); POTASSIUM 3.8 mmol/L (3.5-5.1)
[2022-11-09 06:29] LABS: MAGNESIUM 2.2 mg/dL (1.8-2.4); PHOSPHORUS 3.9 mg/dL (2.5-4.9)
--- NOTE | 2022-11-09 07:00 | NUR ---
ENDORSED TO RUMA DAY SHIFT RN FOR CONTINUITY OF CARE.
--- NOTE | 2022-11-09 07:20 | NUR ---
RECEIVED PATIENT FROM NIGHT MARY PERKINS. PT. INTUBATED, AC/VC 21%, 400 MLS, RATE 10 +5. TUBE FEEDING, ROMERO CATHETER, FLEXISEAL.
--- NOTE | 2022-11-09 08:52 | NUR ---
CPAP TRIAL at 0830, 03/03. pt was tolerating, vital signs were in normal limits, HR 63, 100%. pt was in no signs of respiratory distress. RN was notified. will continue to monitor.
[2022-11-09] MEDS: VANCOMYCIN 750 MG in DEXTROSE 5% 250 ML IV SCH ×2 (09:25→20:53)
[2022-11-09] MEDS: POTASSIUM CHLORIDE 20% 40 MEQ/15 ML UDC GT SCH (09:25)
[2022-11-09] MEDS: FUROSEMIDE 40 MG/4 ML VIAL IVP SCH ×2 (09:26→20:53)
[2022-11-09] MEDS: AMIODARONE 200 MG TAB NG SCH ×2 (09:26→20:54)
[2022-11-09] MEDS: VALPROIC ACID 250 MG/5 ML UDC NG SCH ×2 (09:27→20:54)
[2022-11-09] MEDS: BENZTROPINE 1 MG TAB PO SCH ×2 (09:27→20:54)
[2022-11-09] MEDS: levETIRAcetam 500 MG TAB PO SCH ×2 (09:29→20:55)
[2022-11-09] MEDS: ENOXAPARIN 40 MG/0.4 ML SYR SUBQ SCH (09:29)
[2022-11-09] MEDS: PANTOPRAZOLE 40 MG TABEC PO SCH (09:31)
--- NOTE | 2022-11-09 11:00 | NUR ---
VENT. WEANING X 1 HOUR PT. WAS PLACED ON CPAP/PS, TOLERATED, REGULAR SUCTIONING, LARGE AMOUNT THICK MUCUS WHITE TO CLOUDY WHITE ORAL AND MODERATE BY ETT, THEN CHANGED TO SIMV/VC. PT. IS MENTALLY-CHALLENGED, ABLE TO DO SIMPLE COMMAND LIKE OPENING MOUTH, EYES. PT. SLEEPS MOST OF THE TIME. ABLE TO NOD.
--- NOTE | 2022-11-09 15:00 | NUR ---
DR. BARNEY ([facility]) CAME PT.IS FOR TRANSFER TO [facility] AND DO THE TRACHE AND PEG THERE, PER FREDY CRUZ'S NOTES. AWARE THAT THE PT.'S SISTER HAS GIVEN CONSENT THRU THE NIECE.
--- NOTE | 2022-11-09 15:15 | NUR ---
MESSAGED SUPERVISOR STAVE CUTTING CALLED UP EXTENSION [phone], MISS BOCANEGRA'S NUMBER AND SAID PT. FOR TRANSFER TO [place] AND HAVE THE TRACHE & PEG DONE THERE.
--- NOTE | 2022-11-09 19:30 | NUR ---
RECEIVED PATIENT SLEEPING AT THIS TIME.AFEBRILE.SR ON THE MONITOR ,NO ECTOPY.SEEMINGLY IN COMFORTABLE STATE,FREE OF PAIN AND DISCOMFORT.STILL ON VENTILATOR WITH SETTINGS SIMV/VC 10 FIO2 21% TV 400 PEEP5 PS 15..LUNG SOUNNDS RHONCI.ON VITAL AF AT 60 ML/HR AND TOLERATING FAIRLY WELL.ABDOMEN BENIGN ,SOFT ,ROUND AND NON TENDER WITH + BS X4 QUADS.ROMERO DRAINING ADEQUATE AMOUNT OF URINE.SKIN REMAINS INTACT.PICC LINE IN PLACE AND DRESSING INTACT AND PATENT WILL PROCEED WITH CONTINUITY OF CARE.
--- NOTE | 2022-11-09 22:45 | NUR ---
DR. CHERY ORDERED FOR TYPE AND SCREEN. SENT MESSAGE TO DR. CHERY THAT PER DAY SHIFT NURSE REPORT AND NOTES, PT. IS FOR TRANSFER TO [place] AND WILL DO THE TRACH AND PEG THERE PER DR. JOSE. DR. CHERY STATED OK CANCEL.
[2022-11-10] VITALS (31 sets, daily range): BP systolic 94–127; BP diastolic 55–77
[2022-11-10] MEDS: ALBUTEROL 0.083% 2.5 MG/3 ML NEBU INH SCH ×4 (01:00→20:05)
[2022-11-10] MEDS: PIPERACILLIN/TAZOBACTAM 3.375 GM in DEXTROSE 5% 50 ML IV SCH ×3 (06:14→18:27)
[2022-11-10] MEDS: VANCOMYCIN HCL 25 MG/ML SOLN PO SCH ×3 (06:14→18:27)
[2022-11-10] MEDS: MIDODRINE 5 MG TAB PO SCH ×3 (06:15→18:27)
--- NOTE | 2022-11-10 07:00 | NUR ---
ENDORSED TO RUMA DAY SHIFT RN FOR CONTINUITY OF CARE
--- NOTE | 2022-11-10 07:15 | NUR ---
RECEIVED PATIENT FROM NIGHT MARY PERKINS. PT. ORALLY INTUBATED. SIMV/VC 21%, 400 MLS, f10, +5. TUBE FEEDING, ROMERO CATHETER, FLEXISEAL FOR INCONTINENCE. FOR TRANSFER OUT TO [facility] AND TRACHE AND PEG THERE.
--- NOTE | 2022-11-10 08:00 | NUR ---
ROSIO MÁRQUEZ FROM [facility] CALLED ABOUT THE PATIENT, AND ASKED ABOUT HOW THE PATIENT IS DOING AND THE PLAN. INFORMED THAT THE PATIENT IS STILL ON THE VENTILATOR AND THE PLAN IS FOR TRANSFER TO [facility] AND TRACHE & PEG THERE. MR. MÁRQUEZ ASKED FOR THE [facility] FINANCIAL RISK MANAGER, GIVEN DALJIT'S EXTENSION NUMBER [id number].
[2022-11-10] MEDS: POTASSIUM CHLORIDE 20% 40 MEQ/15 ML UDC GT SCH (09:36)
[2022-11-10] MEDS: AMIODARONE 200 MG TAB NG SCH ×2 (09:37→21:37)
[2022-11-10] MEDS: FUROSEMIDE 40 MG/4 ML VIAL IVP SCH ×2 (09:37→21:37)
[2022-11-10] MEDS: VALPROIC ACID 250 MG/5 ML UDC NG SCH ×2 (09:38→21:34)
[2022-11-10] MEDS: levETIRAcetam 500 MG TAB PO SCH ×2 (09:38→21:36)
[2022-11-10] MEDS: BENZTROPINE 1 MG TAB PO SCH ×2 (09:40→21:35)
[2022-11-10] MEDS: PANTOPRAZOLE 40 MG TABEC PO SCH (09:40)
[2022-11-10] MEDS: ENOXAPARIN 40 MG/0.4 ML SYR SUBQ SCH (09:42)
[2022-11-10] MEDS: ACETAMINOPHEN 325 MG TAB PO PRN (09:44)
[2022-11-10] MEDS: ONDANSETRON 4 MG/2 ML VIAL IVP PRN (10:26)
[2022-11-10 10:49] LABS: BASOPHILS % (AUTO) 0.4 % (0.0-2.0); EOSINOPHILS # (AUTO) 0.1 K/uL (0-0.4); EOSINOPHILS % (AUTO) 0.6 % (0.0-4.0); HEMATOCRIT 26.4 % (36-52); HEMOGLOBIN 8.8 g/dL (12.0-18.0); LYMPHOCYTES % (AUTO) 17.8 % (20.5-51.1); MEAN CORPUSCULAR HEMOGLOBIN 34 pg (27-31); MEAN CORPUSCULAR HGB CONC 33 g/dL (33-37); MEAN CORPUSCULAR VOLUME 101.7 fL (80-94); MONOCYTES # (AUTO) 1.8 K/uL (0.8-1.0); MONOCYTES % (AUTO) 15.8 % (1.7-9.3); NEUTROPHILS # (AUTO) 7.3 K/uL (1.8-7.7); NEUTROPHILS % (AUTO) 65.4 % (42.2-75.2); PLATELET COUNT (AUTO) 567 K/uL (140-450); RED BLOOD CELL COUNT(AUTO) 2.59 MIL/uL (4.20-6.10); WHITE BLOOD COUNT (AUTO) 11.1 K/uL (4.8-10.8)
[2022-11-10 10:51] LABS: ANION GAP 10.1 (8-16); CARBON DIOXIDE 36.7 mmol/L (21-32); POTASSIUM 3.8 mmol/L (3.5-5.1)
[2022-11-10] MEDS: VANCOMYCIN 750 MG in DEXTROSE 5% 250 ML IV SCH ×2 (10:57→21:33)
--- NOTE | 2022-11-10 11:30 | NUR ---
DR. FOLEY CAME, NOTED TEMP. 100F AXILLARY. FOR [facility] TRANSFER, LEFT A MESSAGE FOR DALJIT, UPHOLSTERY TECHNICIAN YESTERDAY. NO ORDERS. CONTINUE TO MONITOR TEMP.
--- NOTE | 2022-11-10 13:02 | NUR ---
DR. BARNEY ([facility]) CAME NOTED TEMP.SPIKE 100F, NOW 99F. NOTED PT.NODS, MOST OF THE TIME SLEEPING, LETHARGIC. OBEYS TO COMMANDS, OPENS EYES & OPENS MOUTH. INFORMED THAT I LEFT MESSAGE THRU VOICEMAIL ON GROUP SUPERVISOR YARD DALJIT, ABOUT [facility] TRANSFER. CONTINUE TREATMENT. NO ORDERS.
--- NOTE | 2022-11-10 15:56 | NUR ---
LORENA JOSEPH (SURGEON) CAME NOTED H/H 8.8/26.4. MD ORDERED TO KEEP NPO POST MIDNIGHT FOR NOW, AND TYPE AND SCREEN, NO COAGULATION.
--- NOTE | 2022-11-10 19:15 | NUR ---
PATIENT HANDED OVER TO NIGHT RN JACQUI. PT.NPO POST MIDNIGHT PER DR. CHERY, FOR TRACHE AND PEG. TYPE AND SCREEN. FOR FOLLOW UP TRANSFER TO [place] WITH [employer] CHIP PROCESSING SUPERVISOR TOMORROW. PT. ON SIMV/VC, PT.CLEANED TWICE FOR FLEXISEAL LEAKING. PT. IS ROUSABLE.
--- NOTE | 2022-11-10 19:20 | NUR ---
RECEIVED REPORT FROM RUMA HERNANDEZ FOR CONTINUITY OF THIS PATIENT. PT I S LYING IN A SUPINE POSITION WITH HIS HEAD ELEVATED TO 30 DEGREES. HE APPEARS WITHOUT DISTRESS. HE'S ETT TO VENT WITH SETTING SIMV/VCFIO2 21%, TV400, RATE 10 AND 5 PEEP. MINIMAL SECRETION. LUNG SOUNDS ARE CLEAR TO AUSCULTATION HE HAS A OJT IN PLACED RECEIVING VITAL AF AT 50 CC/H AND FREE WATER 150 CC Q8H PT IS POSITIVE FOR C-DIFF AND HAS A RECTAL TUBE IN PLACE FOR LIQUID STOOLS HE HAS A ROMERO CATH AND THE URINE IS CLEAR YELLOW. PT IS DUE TO HAVE SURGERY TOMORROW FOR A PEG/ TRACH. HIS SISTER CONSENTED AND TWO RN'S SIGNED THE CONSENT.
--- NOTE | 2022-11-10 20:20 | NUR ---
DR CHAVIS THE ANESTHESIOLOGIST CALLED FOR LABS AND HISTORY ON PT. HE ORDERED A CBC. BNP AND A 2 D ECHO CARDIOGRAM FOR THE AM. ORDERS PLACED.
[2022-11-11] VITALS (32 sets, daily range): BP systolic 99–126; BP diastolic 60–88
[2022-11-11] MEDS: MIDODRINE 5 MG TAB PO SCH ×5 (00:17→23:48)
[2022-11-11] MEDS: PIPERACILLIN/TAZOBACTAM 3.375 GM in DEXTROSE 5% 50 ML IV SCH ×5 (00:17→23:47)
[2022-11-11] MEDS: VANCOMYCIN HCL 25 MG/ML SOLN PO SCH ×5 (00:18→23:48)
[2022-11-11] MEDS: ALBUTEROL 0.083% 2.5 MG/3 ML NEBU INH SCH ×3 (01:55→16:34)
--- NOTE | 2022-11-11 04:36 | NUR ---
AM CARE AND ORAL CARE GIVEN. PT LEAKING AROUND THE FLEX I SEAL
--- NOTE | 2022-11-11 05:03 | NUR ---
SURGICAL CKECKLIST IS DONE . SKIPPED THE SECTION ON MARKING THE SURGICAL AREA.
[2022-11-11 05:48] LABS: BASOPHILS % (AUTO) 0.5 % (0.0-2.0); EOSINOPHILS # (AUTO) 0.1 K/uL (0-0.4); EOSINOPHILS % (AUTO) 0.9 % (0.0-4.0); HEMATOCRIT 23.6 % (36-52); HEMOGLOBIN 8.1 g/dL (12.0-18.0); LYMPHOCYTES % (AUTO) 22.6 % (20.5-51.1); MEAN CORPUSCULAR HEMOGLOBIN 35 pg (27-31); MEAN CORPUSCULAR HGB CONC 34 g/dL (33-37); MEAN CORPUSCULAR VOLUME 101.4 fL (80-94); MONOCYTES # (AUTO) 1.4 K/uL (0.8-1.0); NEUTROPHILS # (AUTO) 5.3 K/uL (1.8-7.7); PLATELET COUNT (AUTO) 512 K/uL (140-450); RED BLOOD CELL COUNT(AUTO) 2.33 MIL/uL (4.20-6.10); RED CELL DISTRIBUTION WIDTH 14.9 % (11.6-13.7); WHITE BLOOD COUNT (AUTO) 8.8 K/uL (4.8-10.8)
[2022-11-11] MEDS: HYDRAGUARD CREAM TP SCH (06:16)
[2022-11-11 06:25] LABS: ANION GAP 6.5 (8-16); CARBON DIOXIDE 35.8 mmol/L (21-32); CREATININE 0.9 mg/dL (0.6-1.3); POTASSIUM 3.3 mmol/L (3.5-5.1)
[2022-11-11] MEDS: POTASSIUM CHLORIDE 20% 40 MEQ/15 ML UDC GT PRN (07:01)
--- NOTE | 2022-11-11 07:04 | NUR ---
POTASSIUM IS 3.3 20MEQ POTASSIUM VIA G TUBE GIVEN,.NA= down to 134 and cl is 96
--- NOTE | 2022-11-11 07:15 | NUR ---
RECEIVED BESIDE REPORT FROM RECEPTION CENTRE MANAGER JACQUI HERNANDEZ. PT ETT TO VENT, SIMV VC FIO2 21%, VT 400, RR 10, PEEP 5. SR ON MONITOR. NPO AFTER MIDNIGHT DUE TO SCHEDULED SURGERY. PICC LINE TO YVAN, RUNNING NS @5 MLS/HR. ROMERO IN PLACE TO GRAVITY. RECTAL TUBE IN PLACE. BILAT SOFT WRIST RESTRAINT. SKIN SEE WOUND ASSESSMENT. BED TO LOWEST POSITION, CALL LIGHT WITHIN REACH, WILL CONTINUE TO MONITOR. Addendum: 11/11/22 at 0956 by Dayne Dow RN RECEIVED BESIDE REPORT FROM RECEPTION CENTRE MANAGER KELLY HERNANDEZ. PT ETT TO VENT, SIMV VC FIO2 21%, VT 400, RR 10, PEEP 5. SR ON MONITOR. NPO AFTER MIDNIGHT DUE TO SCHEDULED SURGERY. PICC LINE TO YVAN, RUNNING NS @ 5 MLS/HR. ROMERO IN PLACE TO GRAVITY. RECTAL TUBE IN PLACE. BED TO LOWEST POSITION, CALL LIGHT WITHIN REACH, WILL CONTINUE TO MONITOR.
[2022-11-11] MEDS: BENZTROPINE 1 MG TAB PO SCH ×2 (08:30→20:57)
[2022-11-11] MEDS: levETIRAcetam 500 MG TAB PO SCH ×2 (08:30→20:58)
[2022-11-11] MEDS: AMIODARONE 200 MG TAB NG SCH ×2 (08:31→20:56)
[2022-11-11] MEDS: PANTOPRAZOLE 40 MG TABEC PO SCH (08:31)
[2022-11-11] MEDS: POTASSIUM CHLORIDE 20% 40 MEQ/15 ML UDC GT SCH (08:31)
[2022-11-11] MEDS: FUROSEMIDE 40 MG/4 ML VIAL IVP SCH ×2 (08:32→20:56)
[2022-11-11] MEDS: ENOXAPARIN 40 MG/0.4 ML SYR SUBQ SCH ×3 (08:32→09:17)
[2022-11-11] MEDS: VANCOMYCIN 750 MG in DEXTROSE 5% 250 ML IV SCH ×2 (08:57→20:55)
[2022-11-11] MEDS: VALPROIC ACID 250 MG/5 ML UDC NG SCH ×2 (08:57→20:57)
--- NOTE | 2022-11-11 11:31 | NUR ---
RECEIVED PHONE CALL FROM DR EPRLA. UPDATED PT INFORMATION. DR PERLA WILL DO TRACH AND PEG SURGERY ON 11/12/22. TO RESTART FEEDING NOW AND NPO AFTER MIDNIGHT. CHECK K+, PT, INR, APTT ON 11/12/22 AM.
--- NOTE | 2022-11-11 16:07 | NUR ---
11/11/22 RD FOLLOW UP COMPLETED PLEASE REFER TO NUTRITION ASSESSMENT UNDER CARE ACTIVITY FOR ESTIMATED NUTRITIONAL NEEDS. 1. RECOMMEND CONTINUE NPO PER MD 2. WHEN/IF MEDICALLY APPROPRIATE, RECOMMEND VITAL AF 1.2 @ GOAL RATE 65 ML/HR TOLERATED, FWF 150 ML Q8H PER MD. - THIS WILL PROVIDE 1560 ML VOLUME, 1872 KCAL, 117 GM OF PROTEIN, AND 1715 ML FREE WATER, MEETING 98% OF ESTIMATED KCAL NEEDS AND 100% OF ESTIMATED PROTEIN NEEDS; ADEQUATE. 3. MONITOR GI SYMPTOMS & GASTRIC RESIDUALS. 4. CONSULT RD PRN. 5. RD TO FOLLOW-UP 2-3 DAYS, HIGH RISK REVIEWED BY MEGHAN CHAVIS RD
--- NOTE | 2022-11-11 17:00 | NUR ---
DR MAJANO ROUNDING AT BEDSIDE. UPDATED PT INFORMATION.
--- NOTE | 2022-11-11 17:30 | NUR ---
DR CETOR OATES AT BEDSIDE. UPDATED PT INFORMATION.
--- NOTE | 2022-11-11 19:15 | NUR ---
ENDORSED TO CRUSHER PLANT OPERATOR GLEN RN FOR CONTINUITY OF CARE. ALL QUESTION ANSWERED.
[2022-11-11] MEDS ORDERED: KCL 20 MEQ/WATER INJ PREMIX 200 ML IV ONE (19:30)
--- NOTE | 2022-11-11 20:00 | NUR ---
AASSUMED CARE OF THIS PATIENT, OPEN EYES,AND NODS TO ANSWERABLE QUESTIONS YES AND NO.AFEBRILE.SEEMINGLY FREE OF PAIN AND DISCOMFORT.SR ON THE MONITOR WITH NO ECTOPY.ON VENT SETTINGS SIMVVC 10 FIO2 21% PEEP5 PS 15.LUNG SOUNDS WITH RHONCHI THROUGHOUT.ABDOMEN BENIGN WITH + BS X4 QUADS.ON TUBE FEEDING OF VITAL AF AT 60ML/HR.RECTAL BAG IN PLACE AND STILL LEAKING DESPITE FLEXISEAL REPLACED TODAY.ROMERO IS INTACT AND IN PLACE DRAINING ADEQUATE AMOUNT OF URINE.PICC LINE WITH DRESSING AND BENIGN..PULSES PRESENT AND PALPABLE.SKIN REMAINS INTACTWILL CONTINUE TO MONITOR.
--- NOTE | 2022-11-11 21:40 | NUR ---
ATTEMPTED TO CALL THIS NUMBER FOR CONSENT [phone] 2X AND THE CHARGE NURSE 1X BUT TO NO AVAIL.
--- NOTE | 2022-11-11 22:05 | NUR ---
DR CHERY MADE AWARE THAT THIS FULL STACK WEB DEVELOPER AND THE CHARGE ATTEMPTED TO CONTACT FAMILY MEMBER DESIGNATED TO SIGN CONSENT BUT TO NO AVALI..DR CHERY JUST SAID ;THANK YOU.
[2022-11-12] VITALS (26 sets, daily range): BP systolic 95–116; BP diastolic 53–72
[2022-11-12 04:31] LABS: BASOPHILS # (AUTO) 0.1 K/uL (0.00-0.22); BASOPHILS % (AUTO) 1.3 % (0.0-2.0); EOSINOPHILS # (AUTO) 0.1 K/uL (0-0.4); EOSINOPHILS % (AUTO) 1.1 % (0.0-4.0); HEMATOCRIT 26.1 % (36-52); LYMPHOCYTES # (AUTO) 2.4 K/uL (2.0-11.5); LYMPHOCYTES % (AUTO) 24.2 % (20.5-51.1); MEAN CORPUSCULAR HEMOGLOBIN 34 pg (27-31); MEAN CORPUSCULAR HGB CONC 34 g/dL (33-37); MEAN CORPUSCULAR VOLUME 99.7 fL (80-94); MONOCYTES # (AUTO) 1.3 K/uL (0.8-1.0); NEUTROPHILS % (AUTO) 60.4 % (42.2-75.2); PLATELET COUNT (AUTO) 565 K/uL (140-450); RED BLOOD CELL COUNT(AUTO) 2.62 MIL/uL (4.20-6.10); RED CELL DISTRIBUTION WIDTH 14.6 % (11.6-13.7)
[2022-11-12 04:41] LABS: POTASSIUM 4.4 mmol/L (3.5-5.1)
[2022-11-12 04:44] LABS: PROTHROMBIN TIME 11.6 secs (10.8-13.4)
[2022-11-12 05:03] LABS: ANION GAP 9.3 (8-16); CARBON DIOXIDE 36.1 mmol/L (21-32); CREATININE 1.1 mg/dL (0.6-1.3)
[2022-11-12] MEDS: VANCOMYCIN HCL 25 MG/ML SOLN PO SCH ×2 (05:28→11:33)
[2022-11-12] MEDS: MIDODRINE 5 MG TAB PO SCH ×3 (05:29→17:44)
[2022-11-12] MEDS: HYDRAGUARD CREAM TP SCH (05:30)
[2022-11-12] MEDS: ALBUTEROL 0.083% 2.5 MG/3 ML NEBU INH SCH ×4 (05:32→19:29)
--- NOTE | 2022-11-12 07:00 | NUR ---
ENDORSED TO DAY SHIFT MARY PRAKASH FOR CONTINUITY OF CARE.
--- NOTE | 2022-11-12 07:15 | NUR ---
RECEIVED BESIDE REPORT FROM EMPLOYMENT SECURITY OFFICER GLEN RN. PT ETT TO VENT, SIMV VC FIO2 21%, VT 400, RR 10, PEEP 5. SR ON MONITOR. OGT CLAMPED, NPO AFTER MIDNIGHT DUE TO SCHEDULED SURGERY. PICC LINE TO YVAN, RUNNING NS @ 5 MLS/HR. ROMERO IN PLACE TO GRAVITY. RECTAL TUBE IN PLACE. GENERALIZED WEAKNESS, BEDREST. BED TO LOWEST POSITION, CALL LIGHT WITHIN REACH, WILL CONTINUE TO MONITOR.
[2022-11-12] MEDS: POTASSIUM CHLORIDE 20% 40 MEQ/15 ML UDC GT SCH ×2 (08:08→08:22)
[2022-11-12] MEDS: AMIODARONE 200 MG TAB NG SCH (08:09)
[2022-11-12] MEDS: VALPROIC ACID 250 MG/5 ML UDC NG SCH (08:09)
[2022-11-12] MEDS: levETIRAcetam 500 MG TAB PO SCH (08:09)
[2022-11-12] MEDS: BENZTROPINE 1 MG TAB PO SCH (08:10)
[2022-11-12] MEDS: PANTOPRAZOLE 40 MG TABEC PO SCH (08:10)
[2022-11-12] MEDS: ENOXAPARIN 40 MG/0.4 ML SYR SUBQ SCH (08:11)
[2022-11-12] MEDS: FUROSEMIDE 40 MG/4 ML VIAL IVP SCH (08:53)
[2022-11-12] MEDS ORDERED: VANCOMYCIN PER PHARMACY MC PRN (10:40)
[2022-11-12] MEDS: PIPERACILLIN/TAZOBACTAM 3.375 GM in DEXTROSE 5% 50 ML IV SCH ×2 (12:15→17:43)
--- NOTE | 2022-11-12 12:30 | NUR ---
DR ECOTR OATES AT BEDSIDE. UPDATED PT INFORMATION.
--- NOTE | 2022-11-12 16:00 | NUR ---
PT WILL BE D/C TO [facility]. REPORT GIVEN TO CONSUELO COOL VIA PHONE/[phone], ALL QUESTIONS ANSWERED.
[2022-11-12] MEDS ORDERED: Vancomycin Per Pharmacy MC (16:06)
[2022-11-12] MEDS ORDERED: PANT40EC56 PO (16:06)
[2022-11-12] MEDS ORDERED: AMIO200T10 NG (16:06)
[2022-11-12] MEDS ORDERED: PRON INH (16:06)
[2022-11-12] MEDS ORDERED: ZOS3.375PM IV (16:06)
[2022-11-12] MEDS ORDERED: VALP-22 NG (16:06)
[2022-11-12] MEDS ORDERED: KEP500 PO (16:06)
[2022-11-12] MEDS ORDERED: LAS20I IVP (16:06)
[2022-11-12] MEDS ORDERED: PRO5 PO (16:06)
[2022-11-12] MEDS ORDERED: ATI2I IVP (16:06)
[2022-11-12] MEDS ORDERED: ACET-1182 PO (16:06)
[2022-11-12] MEDS ORDERED: VANC25SO PO (16:06)
[2022-11-12] MEDS ORDERED: LOV40I SUBQ (16:06)
--- NOTE | 2022-11-12 19:15 | NUR ---
ENDORSED TO DRY SAND MOLDER MAKAYLA RN FOR CONTINUITY OF CARE. ALL QUESTIONS ANSWERED.
--- NOTE | 2022-11-12 19:20 | NUR ---
RECEIVED PATIENT ON BED ALERT, NODS HEAD IN RESPONSE TO CALLS AND YES ANSWER. ORALLY INTUBATED AND VENTILATED AT 21% FI02, SO2 98%. CARDIACSCOPE SHOWS ON SINUS RHYTHM HR 72/MIN. ABDOMEN SOFT , ACTIVE BOWEL SOUNDS. ON CONTINUOUS TUBE FEEDING VIA OGT; TOLERATED. ROMERO CATH IN PLACE TO GRAVITY DRAINAGE BAG; DRAINING TO CLEAR YELLOW URINE OUTPUT; PATENT AND INTACT.
--- NOTE | 2022-11-12 20:00 | NUR ---
DISCHARGE TO [facility]IA [facility] IN FAIR CONDITION. REPORT GIVEN TO [facility] PERSONNEL.
== END 2022-11-12 20:00 | DRG 720 ==
LOC: MED 09:15 → MTU 14:15 → MIC 16:59
PROVIDERS: ADMIT Internal Medicine; ATTEND Internal Medicine
PROC: 5A0935A Assistance with Respiratory Ventilation, Less than 24 Consecutive Hours, High Flow/Velocity Cannula (ICD-10-PCS; 2022-10-23)
PROC: 5A09357 Assistance with Respiratory Ventilation, Less than 24 Consecutive Hours, Continuous Positive Airway Pressure (ICD-10-PCS; 2022-10-24)
PROC: 02HV33Z Insertion of Infusion Device into Superior Vena Cava, Percutaneous Approach (ICD-10-PCS; 2022-10-25)
PROC: 5A0935A Assistance with Respiratory Ventilation, Less than 24 Consecutive Hours, High Flow/Velocity Cannula (ICD-10-PCS; 2022-10-30)
PROC: 5A1945Z Respiratory Ventilation, 24-96 Consecutive Hours (ICD-10-PCS; 2022-10-30)
PROC: 0BH17EZ Insertion of Endotracheal Airway into Trachea, Via Natural or Artificial Opening (ICD-10-PCS; 2022-10-30)
PROC: 5A1955Z Respiratory Ventilation, Greater than 96 Consecutive Hours (ICD-10-PCS; principal; 2022-10-31)
DX: A41.9 Sepsis, unspecified organism (principal); J96.01 Acute respiratory failure with hypoxia; R65.21 Severe sepsis with septic shock; J15.9 Unspecified bacterial pneumonia; G93.40 Encephalopathy, unspecified; A04.72 Enterocolitis due to Clostridium difficile, not specified as recurrent; D69.6 Thrombocytopenia, unspecified; E87.0 Hyperosmolality and hypernatremia; N17.9 Acute kidney failure, unspecified; E87.20 Acidosis, unspecified; I69.951 Hemiplegia and hemiparesis following unspecified cerebrovascular disease affecting right dominant side; I50.9 Heart failure, unspecified; G40.909 Epilepsy, unspecified, not intractable, without status epilepticus; R62.50 Unspecified lack of expected normal physiological development in childhood; K59.00 Constipation, unspecified; E86.0 Dehydration; E87.6 Hypokalemia; Z20.822 Contact with and (suspected) exposure to COVID-19; H10.9 Unspecified conjunctivitis; F41.9 Anxiety disorder, unspecified; F79 Unspecified intellectual disabilities
CPT/HCPCS: 31500; 36415; 36600; 70450; 71045; 71250; 80048; 80053; 80173; 80202; 80299; 80305; 81001; 82550; 82803; 82948; 83605; 83735; 83880; 84100; 84484; 85025; 85384; 85610; 85730; 86886; 86900; 86901; 86920; 87040; 87070; 87081; 87086; 87205; 92526; 93005; 93308; 94002; 94003; 94640; 94660; 96361; 96365; 99291; J0282; J0696; J1650; J1720; J1940; J2060; J2250; J2270; J2370; J2405; J2543; J3010; J3370; J3475; J3480; J3490; J7030; J7060; J7613; Q0092; Q9967